=== PATIENT | male | born 1950 | race Hispanic/Latino ===

== ENCOUNTER 2023-01-09 11:12 | Outpatient (CLI) | payer OTHER, SELFPAY ==
[2023-01-09 11:59] LABS: Hematocrit 33.3 % (42.0-52.0); Hemoglobin 10.3 g/dL (14.0-18.0); Mean Corpuscular HGB Conc 30.9 g/dl (32-36); Mean Corpuscular Hemoglobin 27.5 pg (26-34); Mean Corpuscular Volume 88.8 fl (80-100); Mean Platelet Volume 11.6 fl (7.4-10.4); Platelet Count Result 236 k/mm3 (150-375); Red Blood Count 3.75 M/mm3 (4.6-6.20); Red Cell Distribution Width 14.5 % (11.5-14.5)
[2023-01-09 12:08] LABS: Albumin Level 4.4 g/dL (3.5-5.1); Anion Gap 9 mmol/L (8-16); Blood Urea Nitrogen 66 mg/dL (9-20); Calcium 9.7 mg/dL (8.4-10.2); Carbon Dioxide 27 mmol/L (22-30); Chloride 106 mmol/L (98-107); Cholesterol 138 mg/dL (0-200); Estimated Glomerular Filt Rate 17; Glucose 97 mg/dL (65-110); Sodium 142 mmol/L (137-145)
[2023-01-09 12:22] LABS: Creatinine Urine 82.1 mg/dL; Total Protein Urine Random 151 mg/dL; Ur Ttl Prot Creatinine Ratio 1.84 mg/mg (0-0.20)
[2023-01-09 12:25] LABS: Parathyroid Intact 80.7 pg/mL (7.5-53.5)
== END 2023-01-09 11:13 | disposition home or self-care (01) ==
LOC: ANHLAB 11:15
PROVIDERS: Visit Provider Internal Medicine Nephrology
DX: I10 Essential (primary) hypertension (principal); N18.4 Chronic kidney disease, stage 4 (severe)
CPT/HCPCS: 36415; 80069; 82088; 82465; 82570; 83970; 84156; 84244; 84443; 85027

== ENCOUNTER 2023-07-30 09:34 | Outpatient (CLI) | payer MEDICARE, SELFPAY ==
[2023-07-30 10:24] LABS: Hematocrit 28.6 % (42.0-52.0); Hemoglobin 8.6 g/dL (14.0-18.0); Mean Corpuscular HGB Conc 30.1 g/dl (32-36); Mean Corpuscular Hemoglobin 27.7 pg (26-34); Mean Platelet Volume 11.8 fl (7.4-10.4); Platelet Count Result 150 k/mm3 (150-375); Red Blood Count 3.11 M/mm3 (4.6-6.20); Red Cell Distribution Width 15.5 % (11.5-14.5); White Blood Count 6.4 K/mm3 (4.5-10.0)
[2023-07-30 10:38] LABS: Albumin Level 4.1 g/dL (3.5-5.1); Anion Gap 8 mmol/L (8-16); Blood Urea Nitrogen 103 mg/dL (9-20); Calcium 8.9 mg/dL (8.4-10.2); Carbon Dioxide 22 mmol/L (22-30); Chloride 111 mmol/L (98-107); Estimated Glomerular Filt Rate 11; Glucose 72 mg/dL (65-110); Phosphorus 6.1 mg/dL (2.5-4.5); Potassium 5.1 mmol/L (3.4-5.0); Sodium 141 mmol/L (137-145)
[2023-07-30 10:39] LABS: Creatinine Urine 85.1 mg/dL; Total Protein Urine Random 17 mg/dL
[2023-07-30 10:50] LABS: Parathyroid Intact 135.2 pg/mL (7.5-53.5)
[2023-07-30 11:00] LABS: Iron 56 ug/dL (49-181)
[2023-07-30 11:12] LABS: Percent Iron Saturation 21 % (20-50)
== END 2023-07-30 09:35 | disposition home or self-care (01) ==
LOC: ANHLAB 09:40
PROVIDERS: Visit Provider Internal Medicine Nephrology
DX: E21.1 Secondary hyperparathyroidism, not elsewhere classified (principal); N18.4 Chronic kidney disease, stage 4 (severe)
CPT/HCPCS: 36415; 80069; 82306; 82570; 82728; 83540; 83550; 83970; 84156; 85027

== ENCOUNTER 2023-08-28 10:01 | Outpatient (CLI) | payer MEDICARE, SELFPAY ==
[2023-08-28 11:43] LABS: Albumin Level 4.1 g/dL (3.5-5.1); Anion Gap 8 mmol/L (4-12); Blood Urea Nitrogen 77 mg/dL (9-20); Calcium 9.4 mg/dL (8.4-10.2); Carbon Dioxide 19 mmol/L (22-30); Chloride 114 mmol/L (98-107); Estimated Glomerular Filt Rate 15; Glucose 90 mg/dL (65-110); Potassium 5.5 mmol/L (3.4-5.0); Sodium 141 mmol/L (137-145)
== END 2023-08-28 10:02 | disposition home or self-care (01) ==
LOC: ANHLAB 10:05
PROVIDERS: Visit Provider Internal Medicine Nephrology
DX: N18.4 Chronic kidney disease, stage 4 (severe) (principal)
CPT/HCPCS: 36415; 80069

== ENCOUNTER 2023-10-06 09:34 | Outpatient (CLI) | payer MEDICARE, SELFPAY ==
[2023-10-06 10:34] LABS: Creatinine Urine 67.8 mg/dL; Total Protein Urine Random 30 mg/dL; Ur Ttl Prot Creatinine Ratio 0.44 mg/mg (0-0.20)
[2023-10-06 10:34] LABS: Hematocrit 29.9 % (42.0-52.0); Hemoglobin 9.1 g/dL (14.0-18.0); Mean Corpuscular HGB Conc 30.4 g/dl (32-36); Mean Corpuscular Hemoglobin 27.6 pg (26-34); Mean Corpuscular Volume 90.6 fl (80-100); Mean Platelet Volume 12.1 fl (7.4-10.4); Platelet Count Result 170 k/mm3 (150-375); Red Cell Distribution Width 13.8 % (11.5-14.5); White Blood Count 5.7 K/mm3 (4.5-10.0)
[2023-10-06 10:35] LABS: Albumin Level 4.7 g/dL (3.5-5.1); Anion Gap 13 mmol/L (4-12); Blood Urea Nitrogen 109 mg/dL (9-20); Calcium 9.5 mg/dL (8.4-10.2); Carbon Dioxide 23 mmol/L (22-30); Chloride 106 mmol/L (98-107); Estimated Glomerular Filt Rate 13; Glucose 89 mg/dL (65-110); Phosphorus 6.4 mg/dL (2.5-4.5); Potassium 4.3 mmol/L (3.4-5.0); Sodium 142 mmol/L (137-145)
[2023-10-06 10:45] LABS: Parathyroid Intact 111.4 pg/mL (7.5-53.5)
== END 2023-10-06 09:35 | disposition home or self-care (01) ==
PROVIDERS: Visit Provider Internal Medicine Nephrology
DX: I12.9 Hypertensive chronic kidney disease with stage 1 through stage 4 chronic kidney disease, or unspecified chronic kidney disease (principal); N18.4 Chronic kidney disease, stage 4 (severe)
CPT/HCPCS: 36415; 80069; 82570; 83970; 84156; 85027

== ENCOUNTER 2023-12-15 12:35 | Outpatient (CLI) | payer MEDICARE, SELFPAY ==
[2023-12-15 12:51] LABS: Hematocrit 28.6 % (42.0-52.0); Hemoglobin 9.1 g/dL (14.0-18.0); Mean Corpuscular HGB Conc 31.8 g/dl (32-36); Mean Corpuscular Hemoglobin 28.3 pg (26-34); Mean Corpuscular Volume 89.1 fl (80-100); Mean Platelet Volume 10.3 fl (7.4-10.4); Platelet Count Result 231 k/mm3 (150-375); Red Blood Count 3.21 M/mm3 (4.6-6.20); Red Cell Distribution Width 13.9 % (11.5-14.5); White Blood Count 5.9 K/mm3 (4.5-10.0)
[2023-12-15 13:02] LABS: Albumin Level 4.5 g/dL (3.5-5.1); Anion Gap 14 mmol/L (4-12); Blood Urea Nitrogen 88 mg/dL (9-20); Calcium 9.3 mg/dL (8.4-10.2); Carbon Dioxide 26 mmol/L (22-30); Chloride 101 mmol/L (98-107); Estimated Glomerular Filt Rate 12; Glucose 132 mg/dL (65-110); Phosphorus 5.4 mg/dL (2.5-4.5); Potassium 4.2 mmol/L (3.4-5.0); Sodium 141 mmol/L (137-145)
== END 2023-12-15 12:36 | disposition home or self-care (01) ==
LOC: ANHLAB 12:37
PROVIDERS: PCP Family Medicine; Visit Provider Internal Medicine Nephrology
DX: I12.9 Hypertensive chronic kidney disease with stage 1 through stage 4 chronic kidney disease, or unspecified chronic kidney disease (principal); N18.9 Chronic kidney disease, unspecified
CPT/HCPCS: 36415; 80069; 85027

== ENCOUNTER 2024-03-08 12:21 | Outpatient (CLI) | payer MEDICARE, SELFPAY ==
[2024-03-08 12:54] LABS: Hematocrit 30.2 % (42.0-52.0); Hemoglobin 9.5 g/dL (14.0-18.0); Mean Corpuscular HGB Conc 31.5 g/dl (32-36); Mean Corpuscular Hemoglobin 27.8 pg (26-34); Mean Corpuscular Volume 88.3 fl (80-100); Mean Platelet Volume 11.2 fl (7.4-10.4); Platelet Count Result 170 k/mm3 (150-375); Red Blood Count 3.42 M/mm3 (4.6-6.20); Red Cell Distribution Width 14.4 % (11.5-14.5); White Blood Count 6.5 K/mm3 (4.5-10.0)
[2024-03-08 13:05] LABS: Albumin Level 4.3 g/dL (3.5-5.1); Anion Gap 10 mmol/L (4-12); Blood Urea Nitrogen 63 mg/dL (9-20); Calcium 9.1 mg/dL (8.4-10.2); Carbon Dioxide 26 mmol/L (22-30); Chloride 106 mmol/L (98-107); Estimated Glomerular Filt Rate 11; Glucose 77 mg/dL (65-110); Phosphorus 5.5 mg/dL (2.5-4.5); Potassium 4.9 mmol/L (3.4-5.0); Sodium 142 mmol/L (137-145)
[2024-03-08 13:13] LABS: Parathyroid Intact 93.8 pg/mL (14.5-75.2)
[2024-03-08 13:17] LABS: Creatinine Urine 78.5 mg/dL; Total Protein Urine Random 82 mg/dL; Ur Ttl Prot Creatinine Ratio 1.04 mg/mg (0-0.20)
[2024-03-08 13:48] LABS: Vitamin D 25 Hydroxy 65.2 ng/mL
== END 2024-03-08 12:22 | disposition home or self-care (01) ==
PROVIDERS: PCP Family Medicine; Visit Provider Internal Medicine Nephrology
DX: E21.1 Secondary hyperparathyroidism, not elsewhere classified (principal); N18.4 Chronic kidney disease, stage 4 (severe)
CPT/HCPCS: 36415; 80069; 82306; 82570; 83970; 84156; 85027

== ENCOUNTER 2024-06-14 09:02 | Outpatient (CLI) | payer MEDICARE, SELFPAY ==
[2024-06-14 09:27] LABS: Hematocrit 29.1 % (42.0-52.0); Mean Corpuscular HGB Conc 30.9 g/dl (32-36); Mean Corpuscular Hemoglobin 27.4 pg (26-34); Mean Corpuscular Volume 88.7 fl (80-100); Mean Platelet Volume 10.9 fl (7.4-10.4); Platelet Count Result 174 k/mm3 (150-375); Red Blood Count 3.28 M/mm3 (4.6-6.20); Red Cell Distribution Width 14.6 % (11.5-14.5); White Blood Count 5.9 K/mm3 (4.5-10.0)
[2024-06-14 09:42] LABS: Albumin Level 4.1 g/dL (3.5-5.1); Anion Gap 11 mmol/L (4-12); Blood Urea Nitrogen 79 mg/dL (9-20); Calcium 9.5 mg/dL (8.4-10.2); Carbon Dioxide 32 mmol/L (22-30); Chloride 98 mmol/L (98-107); Estimated Glomerular Filt Rate 12; Glucose 81 mg/dL (65-110); Phosphorus 5.7 mg/dL (2.5-4.5); Sodium 141 mmol/L (137-145)
[2024-06-14 10:04] LABS: Parathyroid Intact 49.1 pg/mL (14.5-75.2)
[2024-06-14 10:33] LABS: Creatinine Urine 42.6 mg/dL; Total Protein Urine Random 46 mg/dL; Ur Ttl Prot Creatinine Ratio 1.08 mg/mg (0-0.20)
== END 2024-06-14 09:03 | disposition home or self-care (01) ==
PROVIDERS: PCP Family Medicine; Visit Provider Internal Medicine Nephrology
DX: E21.1 Secondary hyperparathyroidism, not elsewhere classified (principal); I12.9 Hypertensive chronic kidney disease with stage 1 through stage 4 chronic kidney disease, or unspecified chronic kidney disease; N18.4 Chronic kidney disease, stage 4 (severe)
CPT/HCPCS: 36415; 80069; 82570; 83970; 84156; 85027

== ENCOUNTER 2024-06-15 11:52 | Outpatient (CLI) | payer MEDICARE, SELFPAY | END 2024-06-15 11:53 | disposition home or self-care (01) | PROVIDERS: PCP Family Medicine; Visit Provider Internal Medicine Nephrology | DX: N18.4 Chronic kidney disease, stage 4 (severe) (principal) | CPT/HCPCS: 83735 ==

== ENCOUNTER 2024-08-13 09:24 | Outpatient (CLI) | payer MEDICARE, SELFPAY ==
[2024-08-13 09:41] LABS: Hematocrit 32.2 % (42.0-52.0); Hemoglobin 9.8 g/dL (14.0-18.0); Mean Corpuscular HGB Conc 30.4 g/dl (32-36); Mean Corpuscular Hemoglobin 27.1 pg (26-34); Mean Corpuscular Volume 89.2 fl (80-100); Mean Platelet Volume 11.5 fl (7.4-10.4); Platelet Count Result 190 k/mm3 (150-375); Red Blood Count 3.61 M/mm3 (4.6-6.20); Red Cell Distribution Width 14.1 % (11.5-14.5); White Blood Count 7.3 K/mm3 (4.5-10.0)
--- OUTSIDE RECORDS SUMMARY | 2024-08-13 09:58 | XMS_ITS | Clinical Summary ---
Author Organization [facility] Address [address] [place] [address] Care Team Providers Care Communications Department Chairperson Name Role Phone Charla Jones MD Unavailable [phone] Allergies No known active allergies Medications calcitriol (ROCALTROL) 0.25 MCG capsuleIndications :CKD (chronic kidney disease) stage 4, GFR 15-29 ml/min (CMS/HCC HHS/HCC) Take 1 capsule (0.25 mcg total) by mouth daily. 90 capsule 1 05/07/20 22 Active ferrous sulfate EC 325 (65 Fe) MG tabletIndications: Anemia due to stage 4 chronic kidney disease (CMS/HCC HHS/HCC) Take 1 tablet (325 mg total) by mouth daily. 90 tablet 1 05/07/20 22 Active folic acid (FOLVITE) 400 MCG tabletIndications: Anemia due to stage 4 chronic kidney disease (CMS/HCC HHS/HCC) Take 1 tablet (400 mcg total) by mouth daily. 90 tablet 1 05/07/20 22 Active SHOE WEAR, DME,Indications:Ty pe 2 diabetes mellitus with foot ulcer, without long-term current use of insulin (CMS/HCC HHS/HCC) Off-loading shoe for the left foot 1 Device 05/20/20 22 Active Additional Information Patient not taking.Reported on 09/08/2023 atorvastatin (LIPITOR) 80 MG tablet Take 1 tablet (80 mg total) by mouth daily. 09/24/19 22 Active Cholecalciferol (VITAMIN D) 50 MCG (1999 UT) CapIndications:Vit [place] D insufficiency Take 1 tablet by mouth daily. 30 capsule 07/26/19 23 Active gentamicin (GARAMYCIN) 0.1 % cream Apply topically 3 (three) times daily. 30 g 1 08/17/19 23 Active furosemide (LASIX) 40 MG tabletIndications: CKD (chronic kidney disease) stage 4, GFR 15-29 ml/min ([facility] HHS/HCC) Take 1 tablet by mouth twice a day for 7 days, then decrease back to once a day 90 tablet 3 07/09/19 24 Active COMPRESSION STOCKINGSIndicatio ns:Bilateral lower extremity edema Wear daily bilaterally to reduce swelling in legs 1 Container 1 07/09/19 24 Active lisinopril (PRINIVIL) 10 MG tablet Take 1 tablet (10 mg total) by mouth daily. 07/24/19 24 Active allopurinol (ZYLOPRIM) 100 MG tablet Take 1 tablet (100 mg total) by mouth daily. 02/06/20 23 Active amLODIPine (NORVASC) 5 MG tabletIndications: Primary hypertension Take 1 tablet by mouth once daily 90 tablet 09/19/19 24 Active hydrALAZINE (APRESOLINE) 50 MG tabletIndications: Benign hypertension with CKD (chronic kidney disease) stage IV ([facility]/HCC HHS/HCC) Take 1 tablet (50 mg total) by mouth 3 (three) times daily. 270 tablet 10/28/19 24 Active gabapentin (NEURONTIN) 100 MG capsuleIndications :Diabetic polyneuropathy associated with type 2 diabetes mellitus ([facility] HHS/HCC) Take 1 capsule (100 mg total) by mouth 3 (three) times daily. 270 capsule 3 12/01/19 24 025 Active glipiZIDE (GLUCOTROL) 5 MG tabletIndications: Type 2 diabetes mellitus with stage 4 chronic kidney disease, without long-term current use of insulin ([facility] HHS/HCC),Diabetic ulcer of left midfoot associated with type 2 diabetes mellitus, limited to breakdown of skin ([facility] HHS/HCC) Take 1 tablet (5 mg total) by mouth daily. 90 tablet 3 12/17/19 24 025 Active chlorthalidone (HYGROTEN) 25 MG tabletIndications: Benign hypertension with CKD (chronic kidney disease) stage IV (CMS/HCC HHS/HCC) Take 2 tablets (50 mg total) by mouth daily. 180 tablet 1 01/05/20 24 Active famotidine (PEPCID) 20 MG tabletIndications: Gastroesophageal reflux disease without esophagitis Take 1 tablet (20 mg total) by mouth 2 (two) times daily as needed for Heartburn. 60 tablet 2 02/05/20 24 Active Active Problems Problem Noted Date Diagnosed Date Tinnitus of both ears 10/13/2023 Atherosclerosis of [place] of both lower extremities with intermittent claudication 04/03/2023 Overview (09/08/2023): Last Assessment & Plan: Impression: Patient complains of chronic numbness to bilateral lower extremities and pins and needles sensation to bilateral feet. He has stable nondisabling claudication to bilateral lower extremities. Monophasic waveforms noted to tibial levels bilaterally seen on recent duplex. Plan: Continue ongoing risk factor modifications. - follow up in 6 months for re-evaluation with repeat lower extremity arterial doppler. Diabetic polyneuropathy asso ciated with type 2 diabetes mellitus ([facility]) 01/09/2023 Secondary hyperparathyroidism ([facility]) 10/15/19 23 Peripheral vascular disease 08/07/2022 Benign hypertension with CKD (chronic kidney disease) stage IV ([facility]) 02/05/2022 Diabetic ulcer of left midfo ot associated with type 2 diabetes mellitus, limited to breakdown of skin ([facility]) 02/05/2022 Overview (09/08/2023): Last Assessment & Plan: Stressed the importance of the antibiotics and getting in with a foot doctor. Also discussed need to get labs and xrays today. He has issue with non-compliance in the past. He expressed understanding Last Assessment & Plan: Impression: Patient has an ulceration noted to the lateral aspect of the left 5th metatarsal that continues to improve. Podiatry is monitoring and providing wound care. Diabetes mellitus chronic with good glucose control. Plan: Continue recommendations as per podiatry. -continue insulin and glipizide - Recommend patient to make a sooner appointment if ulceration worsens. Patient voices understanding. Hyperkalemia 03/29/2021 Overview (05/07/2022): Last Assessment & Plan: Rechecking BMP Will restart lasix daily, at 40 mg Pure hypercholesterolemia 03/29/2021 Overview (09/08/2023): Last Assessment & Plan: Hypercholesterolemia chronic and controlled. Continue Lipitor. Lower leg edema 02/20/2021 Overview (05/07/2022): Last Assessment & Plan: Suspect decreased kidney fucntion vs HF vs thyroid disease Checking labs Will likely start lasix for lower leg edema Controlled type 2 diabetes m mariana with hyperglycemia, without long-term current use of insulin ([facility]) 02/20/2021 Overview (05/07/2022): Last Assessment & Plan: Stop metformin Start glipizide instead Referral to renal for further management of his renal function Resolved Problems Problem Noted Date Diagnosed Date Resolved Date Primary hypertension 03/29/2021 024 Overview (09/08/2023): Last Assessment & Plan: Continue medications as currently precribed Last Assessment & Plan: Impression: Chronic and stable. Plan: Continue amlodipine, carvedilol, hydralazine Preventative health care 02/20/202105/2022 Immunizations Name Administration Dates Next Due Fluzone High Dose - >Age 65 (Prefilled Syringe) 05/07/2022,03/29/2021 Influenza Adult (Generic) 05/07/2022 PFIZER COVID-19 (CORTEZ CAP), MRNA, LNP-S, PF, 30 MCG/0.3 ML YOBANI-SUCROSE, IM 09/26/2021 PFIZER COVID-19 (ORIGINAL FO RMULATION, PURPLE CAP) mRNA, LNP-S, PF, 30 MCG/0.3 ML DOSE 04/03/2021,08/14/2020,07/23/2020 Pneumococcal (Prevnar 20) 10/14/2022 Tdap (Adacel) 10/14/2022 Family History Relation Status Comments Father Mother Social History Tobacco Use Types Packs/Day Years Used Date Smoking Tobacco: Never Passive Smoke Exposure: Past Smokeless Tobacco: Never Tobacco Cessation:Counseling Given: Not Answered Alcohol Use Standard Drinks/Week Comments Not Currently 0 (1 standard drink = 0.6 oz pur e alcohol) PHQ-2 Answer Date Recorded Patient Health Questionnaire-2 Score 0 10/13/2023 Sex and Gender Information Value Date Recorded Sex Assigned at Not on file Legal Sex Male 10:31 AM SURFACE GRINDER Gender Identity Not on file Sexual Orientation Not on file Last Filed Vital Signs Vital Sign Reading Time Taken Comments Blood Pressure 171/78 10/13/2023 9:34 AM CDT Pulse 69 10/13/2023 9:34 AM CDT Temperature 36.6 C (97.8 F) 10/13/2023 9:03 AM CDT Respiratory Rate 16 07/09/2023 10:47 AM SURFACE GRINDER Oxygen Saturation 99% 10/13/2023 9:03 AM CDT Inhaled Oxygen Concentration - - Weight 68.3 kg (150 lb 8 oz) 10/13/2023 9:03 AM CDT Height 170.2 cm (5' 7 ) 10/13/2023 9:03 AM CDT Body Mass Index 23.57 10/13/2023 9:03 AM CDT Plan of Treatment Health Maintenance Due Date Last Done Comments ASCVD Statin 1950 Colorectal Cancer Screening Colonoscopy (10 Years) 1950 Zoster Vaccines (1 of 2) 1999 ASCVD LDL 05/07/2023 05/07/2022 Lipid Panel 05/07/2023 05/07/2022, 02/20/2021 RSV Immunization or 60+ Years (1 - 1-dose 75+ series) 01/17/2024 COVID-19 Vaccine ( season) 2024 05/16/2023, 03/11/2022, 09/26/2021, Additional history exists Hemoglobin A1C 02/29/2024 08/29/2023, 0806/2022, 10/14/2022, Additional history exists Influenza Adult (#1) 2024 05/07/2022, 05/07/2022, 03/29/2021 PHQ-2 (Physician [place]) 06/02/2024 10/13/2023 Kidney Health Evaluation 08/28/2024 08/29/2023 PHQ-2 (Physician [place]) 10/12/2024 10/13/2023 Diabetes: Retinopathy Eye Exam 02/06/2025 02/06/2023 Annual Medicare Wellness Visit 03/17/2025 Postponed from 2014 (Patient Refused) DTaP, Tdap and Td Vaccines (2 - Td or Tdap) 10/14/2032 10/14/2022 Hepatitis C Completed 05/07/2022 Pneumococcal Vaccine: 65+ Years Completed 10/14/2022 Meningococcal B Vaccine Aged Out No l onger eligible based on patient's age to complete this topic Meningococcal Vaccine Aged Out No gilberto tono eligible based on patient's age to complete this topic RSV Immunizations Under 20 Months Aged Out No longer eligible based on patient's age to complete this topic Procedures Procedure Name Priority Date/Time Associated Diagnosis Comments HEMOGLOBIN, GLYCOSYLATED Routine 08/29/2023 11:07 AM CDT Uncontrolled type 2 diabetes mellitus with hyperglycemia DIABETIC RETINOPATHY EXAM (NEGATIVE)(SCAN ORDER) Routine 02/06/2023 HEPATITIS C ANTIBODY Routine 05/07/2022 12:58 PM SURFACE GRINDER Annual physical exam LIPID PANEL Routine 05/07/2022 12:58 PM SURFACE GRINDER Mixed hyperlipidemia from Last 3 Months or Most Recently Relevant to Health Maintenance Results * (ABNORMAL) HEMOGLOBIN, GLYCOSYLATED (08/29/2023 11:07 AM CDT) HGB A1C 6.7(H) <5.7 % 08/29/2023 12:11 PM CDT [facility] Comment: ADA GUIDELINES 2010 5.7 TO 6.4% INCREASED RISK OF DIABETES > OR = 6.5% CONSISTENT WITH DIABETES ESTIMATED AVG GLUCOSE 146 mg/dL 08/29/2023 12:11 PM CDT [facility] 08/29/2023 11:0 7 AM CDT Shalom Adame DO LABORATORY Final Resul t [facility] [address] [place] [address], [place] [phone] * DIABETIC RETINOPATHY EXAM (NEGATIVE)(SCAN) (02/06/2023) [facility] Scanned SCANNING Final Resu lt Performing Organization Address City/[facility]/ZIP Co de Phone Number [facility] * (ABNORMAL) LIPID PANEL (05/07/2022 12:58 PM SURFACE GRINDER) CHOLESTEROL 205(H) <200 MG/DL 05/07/2022 9:41 PM SURFACE GRINDER [facility] TRIGLYCERIDES 127 <150 MG/DL 05/07/2022 9:41 PM SURFACE GRINDER [facility] HDL 51 >40 MG/DL 05/07/2022 9:41 PM SURFACE GRINDER [facility] LDL-C 129(H) <100 MG/DL 05/07/2022 9:41 PM SURFACE GRINDER [facility] VLDL CALCULATION 25 5 - 28 MG/DL 05/07/2022 9:41 PM SURFACE GRINDER [facility] CHOL/HDL RATIO 4.0 0.0 - 4.0 05/07/2022 9:41 PM SURFACE GRINDER [facility] LDL/HDL 2.5(H) 0.41 - 2.13 05/07/2022 9:41 PM SURFACE GRINDER [facility] NON HDL CHOLESTEROL 154(H) <140 MG/DL 05/07/2022 9:41 PM SURFACE GRINDER [facility] 05/07/2022 12:5 8 PM SURFACE GRINDER Brittney Pate MD LABORATORY Final Result Performing Organization Address City/[facility]/ZIP Co de Phone Number [facility] [address] [place] [address], * HEPATITIS C ANTIBODY (05/07/2022 12:58 PM SURFACE GRINDER) HEPATITIS C AB NON-REACTI VE NON-REACT MIRNA 05/08/2022 6:56 PM SURFACE GRINDER [facility] Comment: ANTIBODIES TO HCV NOT DETECTED. DOES NOT EXCLUDE THE POSSIBILITY OF EXPOSURE TO HCV. 05/07/2022 12:5 8 PM SURFACE GRINDER Brittney Pate MD LABORATORY Final Result [facility] [address] [place] [address], [place] [phone] [id number] from Last 3 Months or Most Recently Relevant to Health Maintenance Insurance [facility] Care Teams Communications Department Chairperson Relationship Specialty Start Date End Date Charla Jones MD [address] [facility], [address] [address] Consulting Physician NEPHROLOGY 05/13/22
--- OUTSIDE RECORDS SUMMARY | 2024-08-13 09:58 | XMS_ITS ---
Author Organization [facility] Address [address] [place], [place] [id number] Care Team Providers Care Heel Cementer Machine Name Role Phone BRIDGETTE CRUZ Unavailable [phone] Shalom Adame Unavailable Unavailable REASON FOR VISIT toe pain, callus care Encounters Encounter Location Date Provider Diagnosis [facility] [address] [place], [place] [id number] 07/26/2024 BRIDGETTE CRUZ Non-pressure chronic ulcer of other part of left foot limited to breakdown of skin L97.521 ; Ingrowing nail L60.0 ; Atherosclerosis of habematolel arteries of extremities with intermittent claudication, bilateral legs I70.213 and Left foot pain M79.672 Assessments Encounter Date Diagnosis (ICD Code) Assessment Notes Treatment Notes Treatment Clinical Notes Section Notes 07/26/2024 Non-pressure chronic ulcer of other part of left foot limited to breakdown of skin (ICD-10 - L97.521) 07/26/2024 Ingrowing nail (ICD-10 - L60.0) 07/26/2024 Atherosclerosis of habematolel arteries of extremities with intermittent claudication, bilateral legs (ICD-10 - I70.213) 07/26/2024 Left foot pain (ICD-10 - M79.672) 07/26/2024 Other All corns or calluses, as described in the note above, were cut and pared utilizing a #15 blade Plan Of Treatment Treatment Notes Assessment Notes Other All corns or calluse s, as described in the note above, were cut and pared utilizing a #15 blade Next Appt Details Follow Up: 2 Weeks, Reason: Provider Name:BRIDGETTE ERWIN, 10/04/2024 10:10:00 AM, [address], [place], [phone], Progress Notes * DAVID KELLYDOB:1950 ( 74 yo M)Acc No.[id number]:07/26/2024 Patient: DAVID DIOR Provider: Zach Cruz DPM :1950 A ge:74 Y S ex:Male Date:07/26/2024 Address:[address] [place] [address] Subjective: * Chief Complaints: * T oe pain, callus care * HPI: H PI: New Complaint E stablished patient presents with a new complaint. Patient complains of an issue to the ball of his left foot. Patient states he has two calluses on the medial and lateral side of her foot. He states the calluses have started hurting. He states he had sores in those spots he was treated for last year, but they have healed up. P atient denies any injury. MA: sea. * ROS: G eneral / Constitutional: Patient denies c hange in appetite, fatigue, chills, fever.? C ardiovascular: Chest pain d enies. N eurologic: Loss of use of extremity d enies. * Medical History: * Surgical History: * Hospitalization/Major Diagno stic Procedure: * Medications: Objective: * Vitals: * Examination: P hysical Examination: Gen: T he patient is awake, alert, well developed, well groomed and well nourished. They are in no apparent distress. . Musc: F oot structure is normal bilateral. Muscle strength is 5/5 to all joints bilaterally. There is no pain on palpation. . Derm: T here is absent hair growth on bilateral feet. There are pigmentary changes of bilateral foot. The skin color is red. The skin texture is thin and shiny. Distal cooling noted in bilateral feet. Nails are thick, discolored, and dystrophic with subungual debris. They are painful to palpation. Hyperkeratotic lesions noted: 1st and 5th MTH left. Neuro: G rossly intact to light touch bilateral . Vasc: P osterior tibialis pulse 0/4 bilaterally. Dorsalis pedis pulse 0/4 bilaterally. No edema noted. Capillary fill time > 3 seconds to all digits. . Assessment: * Assessment: 1. N on-pressure chronic ulcer of other part of left foot limited to breakdown of skin - L97.521 (Primary) 2 . I ngrowing nail - L60.0 3 . A therosclerosis of habematolel arteries of extremities with intermittent claudication, bilateral legs - I70.213 & #160; 4 . L eft foot pain - M79.672 Plan: * Treatment: * Procedure Codes: * Follow Up: 2 Weeks * Billing Information: * Visit Code: 65813 Office Visit, Est Pt., Level 3. * Procedure Codes: * NICAL MANAGER CHEMICAL PLANT Sign off status: Completed true * Provider: Zach Cruz DPM Date: 0 07/26/2024 Generated for Naomi jose/Natalia/Jackelinesmitting on: 0 08/13/2024 09:58 AM CDT History and Physical Notes * HPI (History of Present Illness) Category Sub-Category Detail Notes Category Not es HPI New Complaint Established paula ent presents with a new complaint. Patient complains of an issue to the ball of his left foot. Patient states he has two calluses on the medial and lateral side of her foot. He states the calluses have started hurting. He states he had sores in those spots he was treated for last year, but they have healed up. Patient denies any injury. MA: sea Examination Category Sub-Category Detail Notes Category Not es Physical Examination Gen: The patient is awake, alert, well developed, well groomed and well nourished. They are in no apparent distress. Vasc: Posterior tibialis p ulse 0/4 bilaterally. Dorsalis pedis pulse 0/4 bilaterally. No edema noted. Capillary fill time > 3 seconds to all digits. Neuro: Grossly intact to li ght touch bilateral Musc: Foot structure is no rmal bilateral. Muscle strength is 5/5 to all joints bilaterally. There is no pain on palpation. Derm: There is absent hair growth on bilateral feet. There are pigmentary changes of bilateral foot. The skin color is red. The skin texture is thin and shiny. Distal cooling noted in bilateral feet. Nails are thick, discolored, and dystrophic with subungual debris. They are painful to palpation. Hyperkeratotic lesions noted: 1st and 5th MTH left
--- OUTSIDE RECORDS SUMMARY | 2024-08-13 09:58 | XMS_ITS ---
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 skin L97.521 ; Ingrowing nail L60.0 ; Atherosclerosis of [place] arteries of extremities with intermittent claudication, bilateral legs I70.213 and Left foot pain M79.672 Assessments Encounter Date Diagnosis (ICD Code) Assessment Notes Treatment Notes Treatment Clinical Notes Section Notes 11/04/2023 Non-pressure chronic ulcer of other part of left foot limited to breakdown of skin (ICD-10 - L97.521) 11/04/2023 Ingrowing nail (ICD-10 - L60.0) 11/04/2023 Atherosclerosis of [place] arteries of extremities with intermittent claudication, bilateral legs (ICD-10 - I70.213) 11/04/2023 Left foot pain (ICD-10 - M79.672) 11/04/2023 Other The ulcer was debrided. Pt advised to resume wound care and call if they get worse. Plan Of Treatment Treatment Notes Assessment Notes Other The ulcer was debrid ed. Pt advised to resume wound care and call if they get worse. Next Appt Details Follow Up: 2 Weeks, Reason: Provider Name:BRIDGETTE ERWIN, 10/04/2024 10:10:00 AM, [address], [place], [place], [phone], Progress Notes * DAVID KELLYDOB:1950 ( 73 yo M)Acc No.[id number]:11/04/2023 Patient: DAVID DIOR Provider: Zach Cruz DPM :1950 A ge:73 Y S ex:Male Date:11/04/2023 Address:[address] [place], [place] [id number] Subjective: * Chief Complaints: * 1 . ULCER CHECK. * HPI: H PI: Follow Up Visit P atient presents for follow up visit for a wound on the lateral side of his left foot. Patient states his foot is sore this morning, but improving. MA: sea. * ROS: G eneral / Constitutional: Patient denies c hange in appetite, fatigue, chills, fever.? C ardiovascular: Chest pain d enies. N eurologic: Loss of use of extremity d enies. * Medical History: A GERRY REFLUX, HEPATITIS, LEG,FEET CRAMPS, OPEN SORES, DIABETIC TYPE 2. Objective: * Examination: P hysical Examination: Gen: T [...] subungual debris. They are painful to palpation. Ulceration noted sub 1st MTH left has healed. Ulceration noted lateral 5th MTH left - it4x1 mm No SOI. Neuro: G rossly intact to light touch [...] - L60.0 3 . A therosclerosis of [place] arteries of extremities with intermittent claudication, bilateral legs - I70.213 4 . L eft foot pain - M79.672 Plan: * Treatment: * Follow Up: 2 Weeks * Billing Information: * Visit Code: 22028 Office Visit, Est Pt., Level 3. * Procedure Codes: * Sign off status: Completed true * Provider: Zach Cruz, THEO Date: 0 11/04/2023 Generated for Printi ng/Fakasandrag/eTransmitting on: 0 08/13/2024 09:58 AM CDT History and Physical Notes * HPI (History of Present Illness) Category Sub-Category Detail Notes Category Not es HPI Follow Up Visit Patient presents for follow up visit for a wound on the lateral side of his left foot. Patient states his foot is sore this morning, but improving. MA: sea Examination Category Sub-Category Detail Notes [...] subungual debris. They are painful to palpation. Ulceration noted sub 1st MTH left has healed. Ulceration noted lateral 5th MTH left - it4x1 mm No SOI
--- OUTSIDE RECORDS SUMMARY | 2024-08-13 09:58 | XMS_ITS | Encounter Summary ---
Author Organization [facility] Address [facility] [place] [address] Care Team Providers Care Artificial Pearl Maker Name Role Phone Brittney Pate MD Primary Care Provider [phone] Charla Jones MD Unavailable [phone] Shalom Adame DO Primary Care Provider [phone] Shalom Adame DO Primary Care Provider [phone] Encounter Details Date Type Department Care Team (Late st Contact Info) Description 08/05/2022 Prep for Procedure [facility], [facility] [address] [place], [place] [id number] Buzz Sesay MD [facility]. [facility] [address], [place] [id number] Social History Tobacco Use Types Packs/Day Years Used Date Smoking Tobacco: Never Smokeless Tobacco: Never Alcohol Use Standard Drinks/Week Comments Yes 0 (1 standard drink = 0.6 oz pur e alcohol) PHQ-2 Answer Date Recorded Patient Health Questionnaire-2 Score 0 07/26/2022 Sex and Gender Information Value Date Recorded Sex Assigned at Not on file Legal Sex Male 10:31 AM TOOTH CLERK Gender Identity Not on file Sexual Orientation Not on file COVID-19 Exposure Response Date Recorded In the last 10 days, have yo u been in contact with someone who was confirmed or suspected to have Coronavirus/COVID-19? No / Unsure 07/31/2022 1:32 PM TOOTH CLERK documented as of this encounter Plan of Treatment Not on file documented as of this encounter Visit Diagnoses Not on filedocumented in this encounter Additional Health Concerns Assessment Noted Time PHQ-9 Depression Total Score: 0 05/16/20 1:10 PM TOOTH CLERK documented as of this encounter Care Teams Artificial Pearl Maker Relationship Specialty Start Date End Date Brittney Pate MD [address] [place] [address] PCP - General FAMILY PRACTICE 04/15/22 09/15/22 Shalom Adame DO [address] [place] [address] PCP - General FAMILY PRACTICE 09/25/22 10/23/22 Shalom Adame DO [address] [place] [address] PCP - General FAMILY PRACTICE 10/24/22 06/21/24 Charla Jones MD [address] [facility], [address] [address] Consulting Physician NEPHROLOGY 05/13/22 documented as of this encounter
--- OUTSIDE RECORDS SUMMARY | 2024-08-13 09:58 | XMS_ITS | Continuity of Care Document ---
Author Organization [facility] Address [address] [place] [address] Phone Care Team Providers Care Colored Leather Setter Name Role Phone Prem Delaney Unavailable Unavailable Advance Directives Directive Yes / No Effective Date File Name No Information Encounters Encounter Description Practice Location Reason(s) For Visit Diagnoses Date Provider Providers Copied on Encounter [facility], [address], [place], [place], [id number], [place] tel:[phone] [facility] No Information Prem Baltazar. [address] [place] [address], [id number], [place]. tel:[phone] Family History Family Member Type Diagnosis Age At Onset No Information Payers Payer name Insurance type Covered green party ID Authoriza tion(s) No Information Social History Type Description Quantity Date Captured Comments Sex Male Smoking Status No Information Chief Complaint And Reason For Visit No Information Reason For Referral Reason For Referral No Information History Of Present Illness Encounter Date Complaint History Of Prese nt Illness No Information Functional Status Date Functional Assessmen t No Information Instructions Date Instruction Additional Infor mation No Information Assessments Type Assessment Date No Information Patient Care Teams Name Effective Dates (start - stop) Status Members No Information
--- OUTSIDE RECORDS SUMMARY | 2024-08-13 09:59 | XMS_ITS | Referral Summary ---
Author Organization [facility] Address [address] [place] [address] Phone Care Team Providers Care Diabetes Trainer Name Role Phone Jay Queen MD Primary Care Provider [phone] Mando Velazco MD Unavailable [phone] Allergies No known active allergies Medications blood-glucose meter miscIndications:D iabetes 1 kit daily Test blood sugar daily 1 each 3 1 Active Additional Information Patient not taking.Reported on 04/28/2024 blood glucose diagnostic (glucose blood) stripIndications: Uncontrolled type 2 diabetes mellitus with hyperglycemia (HCC) Test blood sugar daily 100 strip 3 1 Active Additional Information Patient not taking.Reported on 04/28/2024 lancets miscIndications:U ncontrolled type 2 diabetes mellitus with hyperglycemia (HCC) Test blood sugars daily 100 each 3 1 Active Additional Information Patient not taking.Reported on 04/28/2024 glipiZIDE (GLUCOTROL) 5 mg tabletIndications :type 2 diabetes mellitus Take 1 tablet (5 mg total) by mouth daily 30 tablet 11 1 Active carvediloL (COREG) 12.5 mg tablet Take 1 tablet (12.5 mg total) by mouth 2 (two) times a day with meals 180 tablet 3 2 Active furosemide (LASIX) 40 mg tabletIndications :Lower leg edema,Stage 3a chronic kidney disease (HCC),Hyperkalemi a Take 1 tablet by mouth once daily 90 tablet 2 Active chlorthalidone 25 mg tablet Take 2 tablets (50 mg total) by mouth daily 180 tablet 3 2 Active calcitRIOL (ROCALTROL) 0.25 mcg capsule Take 1 capsule (0.25 mcg total) by mouth daily 90 capsule 3 2 Active Additional Information Patient not taking.Reported on 03/18/2024 famotidine (PEPCID) 20 mg tabletIndications :Gastroesophageal reflux disease without esophagitis TAKE 1 TABLET BY MOUTH TWICE DAILY NEEDED FOR INDIGESTION OR HEARTBURN 180 tablet 1 2 Active allopurinoL (ZYLOPRIM) 100 mg tablet Take 1 tablet (100 mg total) by mouth daily 3 Active amLODIPine (NORVASC) 5 mg tablet Take 1 tablet (5 mg total) by mouth daily Active atorvastatin (LIPITOR) 80 mg tablet Take 1 tablet (80 mg total) by mouth daily 2 Active cholecalciferol (VITAMIN D-3) 2000 unit capsule Take 1 capsule (2,000 Units total) by mouth daily 3 Active ferrous sulfate 325 mg (65 mg of elemental iron) tablet Take 1 tablet (325 mg total) by mouth daily 2 Active folic acid (FOLVITE) 400 mcg tablet Take 1 tablet (400 mcg total) by mouth daily 2 Active gentamicin (GARAMYCIN) 0.1 % cream Apply topically 3 (three) times a day 3 Active hydrALAZINE (APRESOLINE) 50 mg tablet Take 1 tablet (50 mg total) by mouth 3 (three) times a day Active gabapentin (NEURONTIN) 100 mg capsule Take 1 capsule (100 mg total) by mouth 3 (three) times a day 4 025 Active Active Problems Problem Noted Date Diagnosed Date Atherosclerosis of [place] of both lower extremities with intermittent claudication 04/03/2023 Assessment & Plan (04/28/2024 12:48 PM PLATER APPRENTICE): Impression: Patient is status post balloon angioplasty left popliteal and PT. he denies any symptoms of claudication, ischemic rest pain to his lower extremity. Audible signals are noted 2 distal pulses to bilateral lower extremities. No new open ulcerations are noted on exam. Plan: Continue ongoing risk factor modifications. -Recommend patient to follow-up in 6 months for re-evaluation with repeat lower extremity arterial duplex. Assessment & Plan (03/19/2024 10:48 AM CDT): Postop angio 03-03-2024 with balloon angioplasty to the left popliteal artery and left posterior tibial artery. Findings with the angio showed severe tibial disease with no filling to the foot. The ulcerations to the plantar surface of the foot are stable the left foot was warm. Ischemic rest pain symptoms have resolved. Is following up with podiatry as he has been for the wounds to the foot. Plan: Continue statin therapy, and continued follow-up with Podiatry for wound care maintenance and follow up in 1 month with a lower extremity arterial duplex Assessment & Plan (03/03/2024 11:46 AM CDT): Patient's symptoms have progressed consistent with ischemic rest pain with new ulcer plantar surface left foot nonhealing for over 2 months. Recommended left lower extremity angiogram possible intervention. Procedure indications and risks were explained. Patient understands agrees to proceed. Assessment & Plan (06/12/2023 9:41 AM PLATER APPRENTICE): Impression: Patient complains of chronic numbness to bilateral lower extremities and pins and needles sensation to bilateral feet. He has stable nondisabling claudication to bilateral lower extremities. Monophasic waveforms noted to tibial levels bilaterally seen on recent duplex. Plan: Continue ongoing risk factor modifications. - follow up in 6 months for re-evaluation with repeat lower extremity arterial doppler. Assessment & Plan (04/03/2023 9:44 AM CDT): Stable non disabling. Continue current medical management. 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 Continue offloading therapy and wound care management per Wound Service. Assessment & Plan (06/12/2023 9:47 AM PLATER APPRENTICE): Impression: Patient has an ulceration noted to the lateral aspect of the left 5th metatarsal that continues to improve. Podiatry is monitoring and providing wound care. Diabetes mellitus chronic with good glucose control. Plan: Continue recommendations as per podiatry. -continue insulin and glipizide - Recommend patient to make a sooner appointment if ulceration worsens. Patient voices understanding. Assessment & Plan (04/03/2023 9:44 AM CDT): Ulcer continues to heal slowly. Continue current treatment regimen and will hold on more invasive workup and intervention as progress is being made. If ulcer worsens have recommended proceeding with lower extremity angiogram. Assessment & Plan (03/06/2023 11:58 AM CDT): slow healing ulceration to the left 5th metatarsal the plantar surface. Present over the past 3 months. Currently treating with triple antibiotic ointment and Band- Aid and a walking boot. No purulent drainage. He denies any rest pain or claudication. Bilateral lower extremities are warm well perfused diminished Palpable distal pulses. Plan: Follow-up in 1-2 weeks with a lower extremity arterial Doppler study. Assessment & Plan (02/05/2022 11:30 AM CDT): Stressed the importance of the antibiotics and getting in with a foot doctor. Also discussed need to get labs and xrays today. He has issue with non-compliance in the past. He expressed understanding Primary hypertension 03/29/2021 Assessment & Plan (04/28/2024 12:43 PM PLATER APPRENTICE): Impression: Chronic and stable. Plan: Continue amlodipine, carvedilol, hydralazine Assessment & Plan (03/03/2024 11:46 AM CDT): Hypertension chronic controlled. Continue current medical management. Assessment & Plan (06/12/2023 9:46 AM PLATER APPRENTICE): Impression: Chronic and stable. Plan: Continue amlodipine, carvedilol, hydralazine Assessment & Plan (07/03/2021 11:21 AM PLATER APPRENTICE): Continue medications as currently precribed Assessment & Plan (03/29/2021 8:57 AM CDT): Starting coreg and amlodipine Will discuss SETH-I once hyperkalemia is resolved Hyperkalemia 03/29/2021 Assessment & Plan (03/29/2021 8:57 AM CDT): Rechecking BMP Will restart lasix daily, at 40 mg Encounter for Medicare annual wellness exam 03/03 Assessment & Plan (03/29/2021 8:56 AM CDT): Reviewed previous labs and diagnostic test results. Chronic medical problems evaluated and management plans discussed with the patient. Prescription medications, supplements, vitamins and immunizations reviewed. Wear seatbelts. Use sunscreen. Discussed healthy diet and disease prevention and controlling portions including alcohol Discussed importance of scheduling recommended screening tests. Discussed importance of regular physical examinations for health maintenance. Discussed importance of a living will, advanced directives and establishing or updating healthcare power of managing attorney document and providing our office with a copy. Stage 3a chronic kidney disease 03/29/2021 Assessment & Plan (07/03/2021 11:15 AM PLATER APPRENTICE): Saw Dr. Perez last week Needs labs today Will follow-up with renal in August Assessment & Plan (03/29/2021 2:01 PM CDT): Elevated creatinine Renal consul placed Pure hypercholesterolemia 03/29/2021 Assessment & Plan (04/03/2023 9:44 AM CDT): Hypercholesterolemia chronic and controlled. Continue Lipitor. Preventative health care 02/20/2021 Lower leg edema 02/20/2021 Assessment & Plan (02/20/2021 10:02 AM CDT): Suspect decreased kidney fucntion vs HF vs thyroid disease Checking labs Will likely start lasix for lower leg edema Type 2 diabetes mellitus wit h diabetic peripheral angiopathy without gangrene, without long-term current use of insulin 02/20/2021 Assessment & Plan (04/28/2024 12:43 PM PLATER APPRENTICE): Impression: Chronic with good glucose control. Plan: Continue glipizide Assessment & Plan (03/29/2021 2:02 PM CDT): Stop metformin Start glipizide instead Referral to renal for further management of his renal function Assessment & Plan (02/20/2021 10:02 AM CDT): hgba1c is 9.3 Checking official one with CMP and other labs Will need to start medications once we get his lab work back Immunizations Immunization Administration Dates Next Due Influenza, Quadrivalent, Hig h Dose, Preservative Free, Intrr 03/29/2021 Influenza, Unspecified 05/07/2022 Tdap 10/14/2022 Social History Tobacco Use Types Packs/Day Years Used Date Smoking Tobacco: Former Smokeless Tobacco: Never Tobacco Cessation:Counseling Given: Not Answered AUDIT-C Answer Date Recorded Q1: How often do you have a drink containing alc ohol? Monthly or less 03/03/2024 Q2: How many drinks containi ng alcohol do you have on a typical day when you are drinking? 1 or 2 03/03/2024 Q3: How often do you have si x or more drinks on one occasion? Never 03/03/2024 PHQ-2 Answer Date Recorded PHQ-2 Total Score (If total score is 3 or more points, staff should administer the PHQ-9) 0 02/05/2022 Personal Safety Answer Date Recorded Have you ever been in or are you currently in a harmful physical or emotional relationship or is someone making you feel afraid or unsafe? Denies 03/03/2024 Sex and Gender Information Value Date Recorded Sex Assigned at Not on file Legal Sex Male 1:29 AM PLATER APPRENTICE Gender Identity Not on file Sexual Orientation Not on file Last Filed Vital Signs Vital Sign Reading Time Taken Comments Blood Pressure 155/67 04/28/2024 9:32 AM PLATER APPRENTICE Pulse 69 04/28/2024 9:32 AM PLATER APPRENTICE Temperature 36.6 C (97.8 F) 03/03/2024 2:25 PM CDT Respiratory Rate 16 03/03/2024 4:10 PM CDT Oxygen Saturation 100% 03/03/2024 4:10 PM CDT Inhaled Oxygen Concentration - - Weight 68.9 kg (152 lb) 04/28/2024 9:32 AM PLATER APPRENTICE Height 170.2 cm (5' 7 ) 04/28/2024 9:32 AM PLATER APPRENTICE Body Mass Index 23.81 04/28/2024 9:32 AM PLATER APPRENTICE Plan of Treatment Not on file Medical Devices Implanted Type Area Oxygen Therapist Device Identifier Shelf Expiration Date Model / Serial / Lot [employer] V[employer] System Closure Repair Femoral Artery Suture Mediated Perclose Prostyle [id number] - [id number] Implanted:Qty: 1 on 03/03/2024 by Mando Velazco MD at [facility] [employer] 01/30/2025 [id number] / / [id number] Procedures Procedure Name Priority Date/Time Associated Diagnosis Comments EGFR STAT 03/03/2024 10:30 AM CDT Atherosclerosis of [place] artery of both lower extremities with intermittent claudication HEMOGLOBIN A1C Routine 02/05/2022 11:50 AM CDT Diabetic ulcer of left midfoot associated with type 2 diabetes mellitus, limited to breakdown of skin (HCC) US ABDOMINAL AORTIC ANEURYSM SCREENING Schedule Routine, Read Routine (OP Routine) 12/24/2021 8:52 AM CDT Former smoker ALBUMIN CREATININE RATIO, URINE Routine 06/27/2021 2:34 PM PLATER APPRENTICE Diabetic nephropathy (HCC) HEPATITIS C ANTIBODY Routine 02/20/2021 11:08 AM CDT Preventative health care Uncontrolled type 2 diabetes mellitus with hyperglycemia (HCC) LIPID PANEL Routine 02/20/2021 11:08 AM CDT Preventative health care Uncontrolled type 2 diabetes mellitus with hyperglycemia (HCC) from Last 3 Months or Most Recently Relevant to Health Maintenance Results * (ABNORMAL) eGFR (03/03/2024 10:30 AM CDT) eGFR 21(L) >=60 mL/min/1. 73 m2 Comment: Interpretive Data Reference Interval Normal >/= 90 mL/min/1.73m2 Mildly decreased* 60 - 89 mL/min/1.73m2 Mildly to moderately decreased 45 - 59 mL/min/1.73m2 Moderately to severely decreased 30 - 44 mL/min/1.73m2 Severely decreased 15 - 29 mL/min/1.73m2 Kidney Failure < 15 mL/min/1.73m2 *Relative to young adult level Estimated glomerular filtration rate is determined by the 2020 CKD-EPI equation recommended by the National Kidney Foundation (A Unifying Approach to GFR Estimation: Recommendations of the NKF-ASK Task Force on Reassessing the Inclusion of Race in Diagnosing Kidney Disease, JASN 2020). The CKD-EPI equation should not be used for patients with unstable renal function and has not been validated in children and those over 70. Current interpretive data was last reviewed 2021. Blood 03/03/2024 10:3 0 AM CDT 03/03/2024 10:35 AM CDT us Mando Velazco MD LAB BLOOD ORDERABLES Final Result [facility] [address] [facility] Department [place] [address] * (ABNORMAL) Hemoglobin A1c (02/05/2022 11:50 AM CDT) Hgb A1C 8.3(H) 4.0 - 5.6 % [facility] Comment:Testing performed by : [address] [address] Estimated Average Glucose 192 mg/dL [facility] Comment: The ADA recommends reporting an estimated Average Glucose (eAG) with all Hemoglobin A1c results using the equation derived from a study of 507 normal and diabetic adults. Minority populations were underrepresented and children were not included. (Diabetes Care 31:4815-0410, 2008). The eAG is not equivalent to a fasting glucose. Testing performed by: [address] [address] Blood 02/05/2022 11:5 0 AM CDT 02/05/2022 1:50 PM CDT Yosvany Pierson Jr., MD LAB BLOOD ORDERABLES Final Result [facility] [address] [facility] Department [place] [address] * US Abdominal Aortic Aneurysm Screening (12/24/2021 8:52 AM CDT) Anatomical Region Laterality Modality Abdomen Ultrasound 12/24/2021 12:0 6 PM CDT Narrative 12/24/2021 12:07 PM CDT EXAM DESCRIPTION: US ABDOMINAL AORTIC ANEURYSM SCREENING REASON FOR STUDY: AAA screening, smoking history (Age => 50y) TECHNIQUE: Grayscale images acquired of the aorta and stored on PACS. Selected color Doppler and spectral images recorded. COMPARISON: None. FINDINGS: AORTIC CALIBER MAXIMAL PROXIMAL: 2.0 x 2.1 cm. MID: 1.8 x 1.6 cm. DISTAL: 1.3 x 2.0 cm. ILIAC DIAMETER RIGHT: 1.1 cm. LEFT: 1.0 cm. OTHER: No other significant finding. IMPRESSION: No abdominal aortic aneurysm. REFERENCE: Please see below follow up recommendations for abdominal aortic aneurysm surveillance per Society for Vascular Surgery Guidelines: < 2.6 cm No follow up necessary 2.62.9 cm Recommended ultrasound follow up every 5 years 3.0-3.4 cm Recommended ultrasound follow up every 3 years 3.5-3.9 cm Recommended ultrasound follow up every 12 months 4.0-4.9 cm Recommended ultrasound follow up every 12 months, vascular surgery consult 5.0-5.4 cm Recommended ultrasound follow up every 6 months, vascular surgery consult >= 5.5 cm Referral to vascular surgeon Based upon Society for Vascular Surgery Guidelines: J Vasc Surgery 2008 50: s2s49; updated Jun 2017 J Vasc Surgery 67:277 THIS IS AN ELECTRONICALLY VERIFIED FINAL REPORT 12/24/2021 12:07 PM - Electronically signed by Jamin Longo M.D. CH: CORIE Report ID: [id number] Reading Location: [id number] Procedure Note Jaimn Longo Jr., MD - 12/24/2021 EXAM DESCRIPTION: US ABDOMINAL AORTIC ANEURYSM SCREENING REASON FOR STUDY: AAA screening, smoking history (Age => 49y) TECHNIQUE: Grayscale images acquired of the aorta and stored on PACS.Selected color Doppler and spectral images recorded. COMPARISON: None. FINDINGS: AORTIC CALIBER MAXIMAL PROXIMAL: 2.0 x 2.1 cm. MID: 1.8 x 1.6 cm. DISTAL: 1.3 x 2.0 cm. ILIAC DIAMETER RIGHT: 1.1 cm. LEFT: 1.0 cm. OTHER: No other significant finding. IMPRESSION: No abdominal aortic aneurysm. REFERENCE: Please see below follow up recommendations for abdominal aortic aneurysm surveillance per Society for Vascular Surgery Guidelines: < 2.6 cm No follow up necessary 2.62.9 cm Recommended ultrasound follow up every 5 years 3.0-3.4 cm Recommended ultrasound follow up every 3 years 3.5-3.9 cm Recommended ultrasound follow up every 12 months 4.0-4.9 cm Recommended ultrasound follow up every 12 months, vascularsurgery consult 5.0-5.4 cm Recommended ultrasound follow up every 6 months, vascularsurgery consult >= 5.5 cm Referral to vascular surgeon Based upon Society for Vascular Surgery Guidelines: J Vasc Surgery 2009Oct 50: s2s49; updated Jun 2017 J Vasc Surgery 67:277 THIS IS AN ELECTRONICALLY VERIFIED FINAL REPORT 12/24/2021 12:07 PM - Electronically signed by Jamin Longo M.D. CH: CORIE Report ID: [id number] Reading Location: [id number] us Yosvany Pierson Jr., MD IM US PROCEDURES Fin al Result * (ABNORMAL) Albumin Creatinine Ratio, Urine (06/27/2021 2:34 PM PLATER APPRENTICE) Albumin Ur 1,670.6 mg/L [facility] Comment: Interpretive Data No reference range established. Current interpretive data was last revised 2018. Testing performed by: [facility], [address] [place] [address]., [id number] Creatinine Ur 34.3 mg/dL [facility] Comment: Interpretive Data No reference range established. Current interpretive data was last revised 2018. Testing performed by: [facility], [address] [place] [address]., [address] Albumin Creatinine Ratio, Ur 4,871(H) 1 - 29 mg/g [facility] Comment:Testing performed by : [address] [address] Urine 06/27/2021 2:34 PM PLATER APPRENTICE 06/27/2021 4:51 PM PLATER APPRENTICE Allen Perez MD LAB URINE ORDERABLES Final Re sult Performing Organization Address [facility] de Phone Number [address] [place] [address] * Hepatitis C antibody (02/20/2021 11:08 AM CDT) Hep C Ab Nonreactive Nonreactive [facility] Comment: Interpretive Data Nonreactive: Antibodies to HCV not detected. Does NOT exclude the possibility of recent exposure to HCV. Equivocal: Equivocal for HCV antibodies. Supplemental molecular testing will be automatically performed to determine infection status in accordance with current CDC screening recommendations. Reactive: Positive for HCV antibodies. This may represent current or past HCV infection. Supplemental molecular testing will be automatically performed to determine current infection status in accordance with current CDC screening recommendations. Interpretive data was last revised on 2019. Blood 02/20/2021 11:0 8 AM CDT 02/20/2021 2:42 PM CDT us Yosvany Pierson Jr., MD LAB MICROBIOLOGY - GE NERAL ORDERABLES Final Result Performing Organization Address [facility] Co de Phone Number [place] [phone] [facility] [place] [address] * (ABNORMAL) Lipid panel (02/20/2021 11:08 AM CDT) Pathologist [facility] Cholesterol 244(H) 30 - 199 mg/dL [facility] Comment: Interpretive Data Ages < or = 19 years Acceptable: <170 mg/dL Borderline high: 170-199 mg/dL High: >or= 200 mg/dL Ages > or = 20 years Desirable: <200 mg/dL Borderline high: 200-239 mg/dL High: >or= 240 mg/dL Literature References: 1. Expert Panel on Integrated Guidelines for Cardiovascular Health and Risk Reduction in Children and Adolescents. Pediatrics 2011;128:S213 2. NCEP Expert Panel. Circulation 2004;110:227 Current Interpretive Data was last revised on 2018. Testing performed by: [address] [address] Triglycerides 140 <=149 mg/dL [facility] Comment: Interpretive Data Ages < or = 9 years Acceptable: <75 mg/dL Borderline high: 75-99 mg/dL High: >or= 100 mg/dL Ages 10 to 20 years Acceptable: <90 mg/dL Borderline high: 90-129 mg/dL High: >or= 130 mg/dL Ages > or = 20 years Desirable: <150 mg/dL Borderline high: 150-199 mg/dL High: 200-499 mg/dL Very high: >or= 499 mg/dL Literature References: 1. Expert Panel on Integrated Guidelines for Cardiovascular Health and Risk Reduction in Children and Adolescents. Pediatrics 2011;128:S213 2. NCEP Expert Panel. Circulation 2003;110:227 Current Interpretive Data was last revised on 2018. Testing performed by: [address] [address] HDL 44 >=40 mg/dL [facility] Comment: Interpretive Data Ages < or = 19 years Acceptable: >45 mg/dL Borderline low: 40-45 mg/dL Low: <40 mg/dL Ages > or = 20 years Desirable: >or= 60 mg/dL Low: <40 mg/dL Literature References: 1. Expert Panel on Integrated Guidelines for Cardiovascular Health and Risk Reduction in Children and Adolescents. Pediatrics 2011;128:S213 2. NCEP Expert Panel. Circulation 2004;110:227 Current Interpretive Data was last revised on 2018. Testing performed by: [address] [address] LDL, calculated 172(H) <=129 mg/dL [facility] Comment: Interpretive Data Ages < or = 19 years Acceptable: <110 mg/dL Borderline high: 110-129 mg/dL High: >or= 130 mg/dL Ages > or = 20 years Optimal: <100 mg/dL Near optimal: 100-129 mg/dL Borderline high: 130-159 mg/dL High: >160 mg/dL Literature References: 1. Expert Panel on Integrated Guidelines for Cardiovascular Health and Risk Reduction in Children and Adolescents. Pediatrics 2011;128:S213 2. NCEP Expert Panel. Circulation 2004;110:227 Current Interpretive Data was last revised on 2018. Testing performed by: [address] [address] Non-HDL Cholesterol 200 mg/dL [facility] Comment: Interpretive Data Ages < or = 19 years Acceptable: <120 mg/dL Borderline high: 120-144 mg/dL High: >145 mg/dL Ages > or = 20 years When triglycerides are >200 mg/dL, Non-HDL cholesterol is a secondary target of therapy with treatment goals that are 30 mg/dL greater than the LDL cholesterol target. Literature References: 1. Expert Panel on Integrated Guidelines for Cardiovascular Health and Risk Reduction in Children and Adolescents. Pediatrics 2011;128:S213 2. NCEP Expert Panel. Circulation 2004;110:227 Current Interpretive Data was last revised on 2018. Testing performed by: [address] [address] Chol/HDL ratio 6 [facility] Comment:Testing performed by : [address] [address] Blood 02/20/2021 11:0 8 AM CDT 02/20/2021 1:40 PM CDT us Yosvany Pierson Jr., MD LAB BLOOD ORDERABLES Final Result [facility] [address] [facility] Department [place] [address] from Last 3 Months or Most Recently Relevant to Health Maintenance Insurance [employer] Care Teams Diabetes Trainer Relationship Specialty Start Date End Date Jay Queen MD PCP - General Family Practice 02/26/24 Mando Velazco MD [address] [place] [address] [address] Surgeon Vascular Surgery 03/03/24
--- OUTSIDE RECORDS SUMMARY | 2024-08-13 09:59 | XMS_ITS | Clinical Summary ---
Author Organization [facility] Address [address] [place] [address] Phone Care Team Providers Care Paperhanger Apprentice Name Role Phone Jay Queen MD Primary Care Provider [phone] Mando Velazco MD Unavailable [phone] Allergies No known active allergies Medications blood-glucose [...] Problem Noted Date Diagnosed Date Atherosclerosis of [place] ar sandy of both lower extremities with intermittent claudication 04/03/2023 Assessment & Plan (04/28/2024 12:48 PM ELECTRICAL DESIGNER): Impression: Patient is status post balloon angioplasty [...] proceed. Assessment & Plan (06/12/2023 9:41 AM ELECTRICAL DESIGNER): Impression: Patient complains of chronic numbness to [...] Service. Assessment & Plan (06/12/2023 9:47 AM ELECTRICAL DESIGNER): Impression: Patient has an ulceration noted to [...] 03/29/2021 Assessment & Plan (04/28/2024 12:43 PM ELECTRICAL DESIGNER): Impression: Chronic and stable. Plan: Continue amlodipine, carvedilol, hydralazine Assessment & Plan (03/03/2024 11:46 AM CDT): Hypertension chronic controlled. Continue current medical management. Assessment & Plan (06/12/2023 9:46 AM ELECTRICAL DESIGNER): Impression: Chronic and stable. Plan: Continue amlodipine, carvedilol, hydralazine Assessment & Plan (07/03/2021 11:21 AM ELECTRICAL DESIGNER): Continue medications as currently precribed Assessment & [...] and establishing or updating healthcare power of regulatory attorney document and providing our office with a copy. Stage 3a chronic kidney disease 03/29/2021 Assessment & Plan (07/03/2021 11:15 AM ELECTRICAL DESIGNER): Saw Dr. Perez last week Needs labs [...] 02/20/2021 Assessment & Plan (04/28/2024 12:43 PM ELECTRICAL DESIGNER): Impression: Chronic with good glucose control. Plan: [...] Intrr 03/29/2021 Influenza, Unspecified 05/07/2022 Tdap 10/14/2022 Surgical History Surgery Date Site/Laterality Comments ANKLE FRACTURE SURGERY Right BALLOON ANGIOPLASTY, ARTERY 03/03/2024 Left Diagnostic CO2 aortoiliac angiogram. LLE angiogram. BA LT popliteal artery. BA LT PT artery. Medical History Medical History Date Comments Depression Hypertension Infectious viral hepatitis Chronic kidney disease, stage III (moderate) (HC C) Family History Medical History Relation Name Comments Cancer Mother Diabetes Mother's Brother Diabetes Mother's Sister Relation Name Status Comments Mother Mother's Brother Mother's Sister Social History Tobacco Use Types Packs/Day Years [...] on file Legal Sex Male 1:29 AM ELECTRICAL DESIGNER Gender Identity Not on file Sexual Orientation Not on file Obstetrics History Last Filed Vital Signs Vital Sign Reading Time Taken Comments Blood Pressure 155/67 04/28/2024 9:32 AM ELECTRICAL DESIGNER Pulse 69 04/28/2024 9:32 AM ELECTRICAL DESIGNER Temperature 36.6 C (97.8 F) 03/03/2024 2:25 PM CDT Respiratory Rate 16 03/03/2024 4:10 PM CDT Oxygen Saturation 100% 03/03/2024 4:10 PM CDT Inhaled Oxygen Concentration - - Weight 68.9 kg (152 lb) 04/28/2024 9:32 AM ELECTRICAL DESIGNER Height 170.2 cm (5' 7 ) 04/28/2024 9:32 AM ELECTRICAL DESIGNER Body Mass Index 23.81 04/28/2024 9:32 AM ELECTRICAL DESIGNER Plan of Treatment Health Maintenance Due Date Last Done Comments Colon Cancer Screening-Colonoscopy 1950 Dilated Eye Exam 1950 Hepatitis B Screening 1967 Pneumococcal vaccine 65+ (1 of 2 - PCV) 01/17/1968 Zoster Vaccine (1 of 2) 1999 Fall Risk Assessment 03/29/2022 03/29/2021, 02/21/20 21 Foot Exam 03/29/2022 03/29/2021 Well Visit 65+ 03/29/2022 03/29/2021 Albumin Creatinine Ratio, Urine 06/27/2022 2 Hemoglobin A1C 08/05/2022 02/05/2022, 05/0 07/2021, 07/03/2021, Additional history exists Depression Screening 02/05/2023 02/05/2022, 10/02/2021, 07/03/2021, Additional history exists Lipid Panel 05/07/2023 05/07/2022, 02/20/2021 Covid-19 Vaccine (2023-2 5 season) 2024 09/26/2021, 04/03/2021, 08/14/2020, Additional history exists Influenza Vaccine (#1) 2024 05/07/2022, 2020 eGFR 03/03/2025 03/03/2024, 09/0 10/2021, 12/24/2021, Additional history exists DTaP/Tdap/Td Vaccine (2 - Td or Tdap) 10/14/2032 10/14/2022 Hepatitis C Screening Completed 02/20/2021 Abdominal Aortic Aneurysm (A AA) Screen Completed 12/24/2021 Medical Devices Implanted Type Area Engineering Equipment Operator Device Identifier Shelf Expiration Date Model / Serial / Lot [employer] V[employer] System Closure Repair Femoral Artery Suture Mediated Perclose Prostyle 82784-19 - [id number] Implanted:Qty: 1 on 03/03/2024 by Mando Velazco MD at [facility] [employer] 01/30/2025 [id number] / / [id number] Procedures Procedure Name Priority Date/Time Associated Diagnosis Comments EGFR STAT 03/03/2024 10:30 AM CDT Atherosclerosis of [place] artery of both lower extremities with intermittent claudication HEMOGLOBIN A1C Routine 02/05/2022 11:50 AM CDT Diabetic ulcer of left midfoot associated with type 2 diabetes mellitus, limited to breakdown of skin (HCC) US ABDOMINAL AORTIC ANEURYSM SCREENING Schedule Routine, Read Routine (OP Routine) 12/24/2021 8:52 AM CDT Former smoker ALBUMIN CREATININE RATIO, URINE Routine 06/27/2021 2:34 PM ELECTRICAL DESIGNER Diabetic nephropathy (HCC) HEPATITIS C ANTIBODY Routine [...] MD LAB BLOOD ORDERABLES Final Result [facility] [address] [facility] Department [place] [address] * (ABNORMAL) Hemoglobin A1c (02/05/2022 11:50 AM CDT) [facility] Hgb A1C 8.3(H) 4.0 - 5.6 % ANNEL Comment:Testing performed by : [address] [address] Estimated Average Glucose 192 mg/dL ANNEL Comment: The ADA recommends reporting an estimated Average Glucose (eAG) with all Hemoglobin A1c results using the equation derived from a study of 507 normal and diabetic adults. Minority populations were underrepresented and children were not included. (Diabetes Care 31:3601-0311, 2008). The eAG is not equivalent to a fasting glucose. Testing performed by: [address] [address] Blood 02/05/2022 11:5 0 AM CDT 02/05/2022 1:50 PM CDT us Yosvany Pierson Jr., MD LAB BLOOD ORDERABLES Final Result [facility] [address] [facility] Department [place] [address] * US Abdominal Aortic Aneurysm Screening (12/24/2021 [...] Jamin Longo M.D. CH: CORIE Report ID: [id number] Reading Location: [id number] Procedure Note Jamin Longo Jr., MD - 12/24/2021 EXAM DESCRIPTION: [...] Electronically signed by Jamin Longo M.D. CH: Report ID: [id number] Reading Location: [id number] us Yosvany Pierson Jr., MD IMG US PROCEDURES Fin al Result * (ABNORMAL) Albumin Creatinine Ratio, Urine (06/27/2021 2:34 PM ELECTRICAL DESIGNER) Albumin Ur 1,670.6 mg/L ANNEL HDZ Comment: Interpretive Data No reference range established. Current interpretive data was last revised 2018. Testing performed by: [facility], [address] [place] [address]., [address] Creatinine Ur 34.3 mg/dL ANNEL Comment: Interpretive Data No reference range established. Current interpretive data was last revised 2018. Testing performed by: [facility], [address] [place] [address]., [address] Albumin Creatinine Ratio, Ur 4,871(H) 1 - 29 mg/g ANNEL Comment:Testing performed by : [facility], [address] [place] [address]., [address] Urine 06/27/2021 2:34 PM ELECTRICAL DESIGNER 06/27/2021 4:51 PM ELECTRICAL DESIGNER Allen Perez MD LAB URINE ORDERABLES Final Re sult Performing Organization Address [facility] Co de Phone Number [place] [id number] [facility] [place] [address] * Hepatitis C antibody (02/20/2021 11:08 AM CDT) Hep C Ab Nonreactive Nonreactive ANNEL Comment: Interpretive Data Nonreactive: Antibodies to HCV [...] 8 AM CDT 02/20/2021 2:42 PM CDT Yosvany Pierson Jr., MD LAB MICROBIOLOGY - GE NERAL ORDERABLES Final Result Performing Organization Address City/[facility] Co de Phone Number [place] [phone] [facility] [place] [address] * (ABNORMAL) Lipid panel (02/20/2021 11:08 AM CDT) Cholesterol 244(H) 30 - 199 mg/dL ANNEL [...] last revised on 2018. Testing performed by: [address] [address] Triglycerides 140 <=149 mg/dL ANNEL Comment: Interpretive [...] last revised on 2018. Testing performed by: [address] [address] HDL 44 >=40 mg/dL ANNEL Comment: Interpretive [...] last revised on 2018. Testing performed by: [address] [address] LDL, calculated 172(H) <=129 mg/dL ANNEL Comment: [...] last revised on 2018. Testing performed by: [address] [address] Non-HDL Cholesterol 200 mg/dL ANNEL HDZ Comment: Interpretive Data Ages < or = [...] last revised on 2018. Testing performed by: [address] [address] Chol/HDL ratio 6 ANNEL HDZ Comment:Testing performed by : [address] [address] Blood 02/20/2021 11:0 8 AM CDT 02/20/2021 1:40 PM CDT us Yosvany Pierson Jr., MD LAB BLOOD ORDERABLES Final Result ANNEL HDZ [address] [facility] Department [place] [address] from Last 3 Months or Most Recently Relevant to Health Maintenance Insurance [employer] Care Teams Paperhanger Apprentice Relationship Specialty Start Date End Date Jay Queen MD PCP - General Family Practice 02/26/24 Mando Velazco MD [address] [place] [address] [address] Surgeon Vascular Surgery 03/03/24
--- OUTSIDE RECORDS SUMMARY | 2024-08-13 09:59 | XMS_ITS ---
Author Organization [facility] Address [address] [place], [place] [id number] Care Team Providers Care Marksmanship Instructor Name Role Phone BRIDGETTE CRUZ Unavailable [phone] Shalom Adame Unavailable Unavailable REASON FOR VISIT transportation Encounters Encounter Location Date Provider Diagnosis [facility] [address] [place], [place] [id number] 12/02/2023 BRIDGETTE CRUZ Plan Of Treatment Next Appt Details Provider Name:BRIDGETTE ERWIN, 10/04/2024 10:10:00 AM, [address], [place], [place], [id number], Progress Notes * DAVID KELLYDOB:1950 ( 74 yo M)Acc No.[id number]:12/02/2023 Patient: Hailey LENORERAJESHNY Provider: Zach Cruz DPM :1950 A ge:73 Y S ex:Male Date:12/02/2023 Address:[address] [facility] Subjective: * Chief Complaints: * 1 . Transportation. * Medical History: Objective: * Vitals: Assessment: Plan: * Treatment: * Billing Information: * Visit Code: * Procedure Codes: * Electronic signature of BRIDGETTE CRUZ DPM on 08/13/2024 at 09:59 AM CDT Sign off status: Pending * Provider: Zach Cruz DPM Date: 0 12/02/2023 Generated for Naomi jose/Natalia/eTjudith on: 08/13/2024 09:59 AM CDT
--- OUTSIDE RECORDS SUMMARY | 2024-08-13 09:59 | XMS_ITS | Patient Health Record ---
Author Organization [facility] Address [address] [place], [place] [id number] Care Team Providers Care Tax Record Clerk Name Role Phone BRIDGETTE MARTINEZ Unavailable [phone] Shalom Adame Unavailable Unavailable Allergies No Known Allergies Reason For Referral No Information Immunizations Vaccine Route Administration Date Status Comme nts Influenza, high dose seasonal Unknown 02/28/2023 Admini stered Vital Signs Height-cm 170.18 cm 10/07/2023 Weight-kg 66.68 kg 10/07/2023 Height 67 in 10/07/2023 Weight 147 lbs 10/07/2023 BMI 23.02 kg/m2 10/07/2023 Encounters Encounter Location Date Provider Diagnosis [facility] [address] [place], [place] [id number] 08/26/2023 BRIDGETTE MARTINEZ Non-pressure chronic ulcer of other part of left foot limited to breakdown of skin L97.521 ; Ingrowing nail L60.0 ; Atherosclerosis of [place] arteries of extremities with intermittent claudication, bilateral legs I70.213 and Left foot pain M79.672 [facility] [address] [place], [place] [id number] 09/16/2023 BRIDGETTE MARTINEZ Non-pressure chronic ulcer of other part of left foot limited to breakdown of skin L97.521 ; Ingrowing nail L60.0 ; Atherosclerosis of [place] arteries of extremities with intermittent claudication, bilateral legs I70.213 and Left foot pain M79.672 [facility] [address] [place], [place] [id number] 10/07/2023 BRIDGETTE MARTINEZ Non-pressure chronic ulcer of other part of left foot limited to breakdown of skin L97.521 ; Ingrowing nail L60.0 ; Atherosclerosis of [place] arteries of extremities with intermittent claudication, bilateral legs I70.213 and Left foot pain M79.672 [facility] [address] [facility] [address] [place], [place] [id number] 11/04/2023 BRIDGETTE MARTINEZ Non-pressure chronic ulcer of other part of left foot limited to breakdown of skin L97.521 ; Ingrowing nail L60.0 ; Atherosclerosis of [place] arteries of extremities with intermittent claudication, bilateral legs I70.213 and Left foot pain M79.672 [facility] [address] [facility] [address] [place], [place] [id number] 07/26/2024 BRIDGETTE MARTINEZ Non-pressure chronic ulcer of other part of left foot limited to breakdown of skin L97.521 ; Ingrowing nail L60.0 ; Atherosclerosis of [place] arteries of extremities with intermittent claudication, bilateral legs I70.213 and Left foot pain M79.672 Assessments Encounter Date Diagnosis (ICD Code) Assessment Notes Treatment Notes Treatment Clinical Notes Section Notes 08/26/2023 Ingrowing nail (ICD-10 - L60.0) 08/26/2023 Non-pressure chronic ulcer of other part of left foot limited to breakdown of skin (ICD-10 - L97.521) 09/16/2023 Non-pressure chronic ulcer of other part of left foot limited to breakdown of skin (ICD-10 - L97.521) 10/07/2023 Ingrowing nail (ICD-10 - L60.0) 10/07/2023 Non-pressure chronic ulcer of other part of left foot limited to breakdown of skin (ICD-10 - L97.521) 11/04/2023 Non-pressure chronic ulcer of other part of left foot limited to breakdown of skin (ICD-10 - L97.521) 07/26/2024 Non-pressure chronic ulcer of other part of left foot limited to breakdown of skin (ICD-10 - L97.521) 07/26/2024 Ingrowing nail (ICD-10 - L60.0) 10/07/2023 Atherosclerosis of [place] arteries of extremities with intermittent claudication, bilateral legs (ICD-10 - I70.213) 11/04/2023 Ingrowing nail (ICD-10 - L60.0) 08/26/2023 Atherosclerosis of [place] arteries of extremities with intermittent claudication, bilateral legs (ICD-10 - I70.213) 09/16/2023 Ingrowing nail (ICD-10 - L60.0) 08/26/2023 Left foot pain (ICD-10 - M79.672) 09/16/2023 Atherosclerosis of [place] arteries of extremities with intermittent claudication, bilateral legs (ICD-10 - I70.213) 10/07/2023 Left foot pain (ICD-10 - M79.672) 11/04/2023 Atherosclerosis of [place] arteries of extremities with intermittent claudication, bilateral legs (ICD-10 - I70.213) 07/26/2024 Atherosclerosis of [place] arteries of extremities with intermittent claudication, bilateral legs (ICD-10 - I70.213) 07/26/2024 Left foot pain (ICD-10 - M79.672) 11/04/2023 Left foot pain (ICD-10 - M79.672) 09/16/2023 Left foot pain (ICD-10 - M79.672) 08/26/2023 Other The ulcer was debrided down to bleeding tissue. A dry sterile dressing was applied. The patient was given instruction on home dressing and told to use betadine ointment on the wound. The patient was instructed to minimize pressure on the wound and to call the office immediately if the wound should start to worsen. Following skin prep, the offending nail border was debrided without anesthesia. The patient was instructed on monitoring for infection or recurrence. 09/16/2023 Other The ulcer was debrided down to bleeding tissue. A dry sterile dressing was applied. The patient was given instruction on home dressing and told to use betadine ointment on the wound. The patient was instructed to minimize pressure on the wound and to call the office immediately if the wound should start to worsen. 10/07/2023 Other The ulcer was debrided. Pt advised to d/c wound care and call if they get worse. 11/04/2023 Other The ulcer was debrided. Pt advised to resume wound care and call if they get worse. 07/26/2024 Other All corns or calluses, as described in the note above, were cut and pared utilizing a #15 blade Plan Of Treatment Next Appt Details Provider Name:BRIDGETTE ERWIN, 10/04/2024 10:10:00 AM, [address] [facility] [address], [place], [place], [phone], Insurance Providers Payer Name Payer Address Payer Phone Subscriber Number Group Number Insured Name Patient Relationship to Insured Coverage Start Date Coverage End Date [facility] [address] [address] [place] [id number] DAVID KELLY Self - patient is the insured Medical (General) History Medical History History ICD Code ACID REFLUX HEPATITIS LEG,FEET CRAMPS OPEN SORES DIABETIC TYPE 2
[2024-08-13 10:06] LABS: Albumin Level 4.5 g/dL (3.5-5.1); Anion Gap 13 mmol/L (4-12); Blood Urea Nitrogen 82 mg/dL (9-20); Calcium 9.9 mg/dL (8.4-10.2); Carbon Dioxide 31 mmol/L (22-30); Chloride 98 mmol/L (98-107); Estimated Glomerular Filt Rate 10; Glucose 92 mg/dL (65-110); Phosphorus 5.8 mg/dL (2.5-4.5); Sodium 142 mmol/L (137-145)
[2024-08-13 10:06] LABS: Creatinine Urine 63.1 mg/dL; Total Protein Urine Random 55 mg/dL; Ur Ttl Prot Creatinine Ratio 0.87 mg/mg (0-0.20)
[2024-08-13 10:11] LABS: Parathyroid Intact 55.1 pg/mL (14.5-75.2)
== END 2024-08-13 09:25 | disposition home or self-care (01) ==
PROVIDERS: PCP Family Medicine; Visit Provider Internal Medicine Nephrology
DX: N18.5 Chronic kidney disease, stage 5 (principal)
CPT/HCPCS: 36415; 80069; 82570; 83970; 84156; 85027

== ENCOUNTER 2024-10-08 10:21 | Outpatient (CLI) | payer MEDICARE, SELFPAY ==
--- OUTSIDE RECORDS SUMMARY | 2024-10-08 10:27 | XMS_ITS | Clinical Summary ---
Author Organization [facility] Address [address] [place] [address] Care Team Providers Care Pumper Gauger Apprentice Name Role Phone Charla Jones MD Unavailable Allergies No known active allergies Medications calcitriol [...] 22 Active Cholecalciferol (VITAMIN D) 50 MCG (2000 UT) CapIndications:Vit montenegro D insufficiency Take 1 tablet by mouth daily. 30 capsule 07/26/19 23 Active gentamicin (GARAMYCIN) 0.1 % cream Apply topically 3 (three) times daily. 30 g 1 08/17/19 23 Active furosemide (LASIX) 40 MG tabletIndications: CKD (chronic kidney disease) stage 4, GFR 15-29 ml/min ([facility]/HCC) Take 1 tablet by mouth twice [...] with CKD (chronic kidney disease) stage IV ([facility]HCC) Take 1 tablet (50 mg total) by mouth 3 (three) times daily. 270 tablet 10/28/19 24 Active gabapentin (NEURONTIN) 100 MG capsuleIndications :Diabetic polyneuropathy associated with type 2 diabetes mellitus ([facility] H[facility]/HCC) Take 1 capsule (100 mg total) by mouth 3 (three) times daily. 270 capsule 3 12/01/19 24 025 Active glipiZIDE (GLUCOTROL) 5 MG tabletIndications: Type 2 diabetes mellitus with stage 4 chronic kidney disease, without long-term current use of insulin ([facility] H[facility]/HCC),Diabetic ulcer of left midfoot associated with type 2 diabetes mellitus, limited to breakdown of skin ([facility]/HCC) Take 1 tablet (5 mg total) [...] Tinnitus of both ears 10/13/2023 Atherosclerosis of [place] ar sandy of both lower extremities with [...] asso ciated with type 2 diabetes mellitus ([facility]) 01/09/2023 Secondary hyperparathyroidism ([facility]) 10/15/19 23 Peripheral vascular disease 08/07/2022 Benign hypertension with CKD (chronic kidney disease) stage IV ([facility]) 02/05/2022 Diabetic ulcer of left midfo ot associated with type 2 diabetes mellitus, limited to breakdown of skin ([facility]) 02/05/2022 Overview (09/08/2023): Last Assessment & Plan: [...] hyperglycemia, without long-term current use of insulin ([facility]) 02/20/2021 Overview (05/07/2022): Last Assessment & Plan: [...] carvedilol, hydralazine Preventative health care 02/20/202105/2022 Immunizations Immunization Administration Dates Next Due Fluzone High Dose [...] on file Legal Sex Male 10:31 AM STRUCTURAL STEEL DETAILER Gender Identity Not on file Sexual Orientation Not on file Last Filed Vital Signs Vital Sign Reading Time Taken Comments Blood Pressure 171/78 10/13/2023 9:34 AM CDT Pulse 69 10/13/2023 9:34 AM CDT Temperature 36.6 C (97.8 F) 10/13/2023 9:03 AM CDT Respiratory Rate 16 07/09/2023 10:47 AM STRUCTURAL STEEL DETAILER Oxygen Saturation 99% 10/13/2023 9:03 AM CDT Inhaled Oxygen Concentration - - Weight 68.3 kg (150 lb 8 oz) 10/13/2023 9:03 AM CDT Height 170.2 cm (5' 7 ) 10/13/2023 9:03 AM CDT Body Mass Index 23.57 10/13/2023 9:03 AM CDT Plan of Treatment Health Maintenance Due Date Last Done Comments ASCVD Statin 1950 Colorectal Cancer Screening Colonoscopy (10 Years) 1950 Kidney Health Evaluation 1950 Zoster Vaccines (1 of 2) 1999 ASCVD LDL 05/07/2023 05/07/2022 Lipid Panel 05/07/2023 05/07/2022, 02/20/2021 RSV Immunization or 60+ Years (1 - 1-dose 75+ series) 01/17/2024 COVID-19 Vaccine ( season) 2024 05/16/2023, 03/11/2022, 09/26/2021, Additional history exists Hemoglobin A1C 02/29/2024 08/29/2023, 0806/2022, 10/14/2022, Additional history exists PHQ-2 (Physician [place]) 06/02/2024 10/13/2023 Diabetes: Retinopathy Eye Exam 02/06/2025 02/06/2023 Annual Medicare Wellness Visit 03/17/2025 Postponed from 2014 (Patient Refused) DTaP, Tdap and Td Vaccines (2 - Td or Tdap) 10/14/2032 10/14/2022 Hepatitis C Completed 05/07/2022 Pneumococcal Vaccine: 50+ Years Completed 10/14/2022 Meningococcal B Vaccine Aged [...] HEPATITIS C ANTIBODY Routine 05/07/2022 12:58 PM STRUCTURAL STEEL DETAILER Annual physical exam LIPID PANEL Routine 05/07/2022 12:58 PM STRUCTURAL STEEL DETAILER Mixed hyperlipidemia from Last 3 Months or Most Recently Relevant to Health Maintenance Results * (ABNORMAL) HEMOGLOBIN, GLYCOSYLATED (08/29/2023 11:07 AM CDT) HGB A1C 6.7(H) <5.7 % 08/29/2023 12:11 PM CDT [facility] Comment: ADA GUIDELINES 2010 5.7 TO 6.4% INCREASED RISK OF DIABETES > OR = 6.5% CONSISTENT WITH DIABETES ESTIMATED AVG GLUCOSE 146 mg/dL 08/29/2023 12:11 PM CDT [facility] 08/29/2023 11:0 7 AM CDT us Shalom Adame DO LABORATORY Final Resul t [facility] [address] [place] [address], [place] [phone] * DIABETIC RETINOPATHY EXAM (NEGATIVE)(SCAN) (02/06/2023) [facility] Scanned SCANNING Final Resu lt [facility] * (ABNORMAL) LIPID PANEL (05/07/2022 12:58 PM STRUCTURAL STEEL DETAILER) Pathologist [facility] CHOLESTEROL 205(H) <200 MG/DL 05/07/2022 9:41 PM STRUCTURAL STEEL DETAILER [facility] TRIGLYCERIDES 127 <150 MG/DL 05/07/2022 9:41 PM STRUCTURAL STEEL DETAILER [facility] HDL 51 >40 MG/DL 05/07/2022 9:41 PM STRUCTURAL STEEL DETAILER [facility] LDL-C 129(H) <100 MG/DL 05/07/2022 9:41 PM STRUCTURAL STEEL DETAILER [facility] VLDL CALCULATION 25 5 - 28 MG/DL 05/07/2022 9:41 PM STRUCTURAL STEEL DETAILER [facility] CHOL/HDL RATIO 4.0 0.0 - 4.0 05/07/2022 9:41 PM STRUCTURAL STEEL DETAILER [facility] LDL/HDL 2.5(H) 0.41 - 2.13 05/07/2022 9:41 PM STRUCTURAL STEEL DETAILER [facility] NON HDL CHOLESTEROL 154(H) <140 MG/DL 05/07/2022 9:41 PM STRUCTURAL STEEL DETAILER [facility] 05/07/2022 12:5 8 PM STRUCTURAL STEEL DETAILER Brittney Pate MD LABORATORY Final Result Performing Organization Address City/[facility]/ZIP Co de Phone Number [facility] [address] [facility] [place] [address], [place] [phone] * HEPATITIS C ANTIBODY (05/07/2022 12:58 PM STRUCTURAL STEEL DETAILER) HEPATITIS C AB NON-REACTI VE NON-REACT MIRNA 05/08/2022 6:56 PM STRUCTURAL STEEL DETAILER [facility] Comment: ANTIBODIES TO HCV NOT DETECTED. DOES NOT EXCLUDE THE POSSIBILITY OF EXPOSURE TO HCV. 05/07/2022 12:5 8 PM STRUCTURAL STEEL DETAILER Brittney Pate MD LABORATORY Final Result [facility] [address] [place] [address], [id number] from Last 3 Months or Most Recently Relevant to Health Maintenance Insurance [facility] Care Teams Pumper Gauger Apprentice Relationship Specialty Start Date End Date Charla Jones MD [address] [facility], [address] [address] Consulting Physician NEPHROLOGY 05/13/22
--- OUTSIDE RECORDS SUMMARY | 2024-10-08 10:27 | XMS_ITS | Referral Summary ---
Author Organization [facility] Address [address] [place] [address] Phone Care Team Providers Care Machine Deburrer Name Role Phone Jay Queen MD Primary Care Provider [phone] Mando Velazco MD Unavailable [phone] Encounters Date Type Department Care Team Description 10/01/2024 Telephone [facility] Medical [facility] Cardiology [address] [place] [address] [phone] Sultan Ej Bhandari MD 09/27/2024 Telephone [facility] Cardiology [address] [place] [address] [phone] Richmond Soto MD 09/24/2024 Telephone [facility] D[facility] at [address] [place] [address] [phone] Roys Godinez NP Referral/Request for Cardiac Clearance (LUE AVF vs AVG Creation to be scheduled once clearance obtained. ) 09/24/2024 8:21 AM CDT - 09/24/2024 11:59 PM CDT Hospital [facility] at [address] [phone] Chronic kidney disease, stage 4 (severe) (HCC) (Primary Dx); Primary hypertension; Type 2 diabetes mellitus with diabetic peripheral angiopathy without gangrene, without long-term current use of insulin (HCC) Discharge Disposition: Discharge to home or self care 09/24/2024 8:21 AM CDT - 09/24/2024 11:59 PM CDT Hospital Encounter [facility] Medical Office Building 2 Vascular [address] [facility] [address] [place] [address] Pre-operative exam; Chronic kidney disease, stage 4 (severe) (HCC) Discharge Disposition: Discharge to home or self care 09/06/2024 Telephone [facility] Vascular and Vein Surgery [address] [facility] [address] [place] [address] Saadia De Leon from Last 3 Months Allergies No known active allergies Medications blood-glucose [...] Problem Noted Date Diagnosed Date 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 Assessment & Plan (06/12/2023 9:41 AM BOTTLING ATTENDANT): Impression: Patient complains of chronic numbness to [...] disease, stage 4 (severe) (HCC) 0 02/05/2022 Assessment & Plan (09/24/2024 1:21 PM CDT): Impression: Patient with chronic kidney disease requiring evaluation for permanent access for dialysis. Patient is right-hand dominant and denies any upper extremity DVTs/trauma/ports her lines to the upper chest. Venous mapping to bilateral upper extremities reveals veins not suitable for fistula creation. Plan: Recommend left upper extremity AV fistula/graft creation for dialysis access. Risks of the procedure communicate with the patient to include risk of bleeding, risk of infection, risk of nerve damage, risk of additional surgery, and risk of limb and life. Educated the patient regarding routine surveillance to ensure his access is functioning properly and to ensure no stenosis has occurred. Educated patient of the possibility of further surgery if his fistula/graft becomes stenosis. Educated the patient of arterial steal syndrome and the possibility of occurrence post fistula/graft creation. Patient voices understanding to all these risks explained to him. 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 Continue offloading therapy and wound care management per Wound Service. Assessment & Plan (06/12/2023 9:47 AM BOTTLING ATTENDANT): Impression: Patient has an ulceration noted to [...] understanding Primary hypertension 03/29/2021 Assessment & Plan (09/24/2024 1:21 PM CDT): Impression: Chronic stable. Plan: Continue amlodipine, carvedilol, hydralazine. Assessment & Plan (04/28/2024 12:43 PM BOTTLING ATTENDANT): Impression: Chronic and stable. Plan: Continue amlodipine, carvedilol, hydralazine Assessment & Plan (03/03/2024 11:46 AM CDT): Hypertension chronic controlled. Continue current medical management. Assessment & Plan (06/12/2023 9:46 AM BOTTLING ATTENDANT): Impression: Chronic and stable. Plan: Continue amlodipine, carvedilol, hydralazine Assessment & Plan (07/03/2021 11:21 AM BOTTLING ATTENDANT): Continue medications as currently precribed Assessment & [...] and establishing or updating healthcare power of attorney recruiter document and providing our office with a copy. Stage 3a chronic kidney disease 03/29/2021 Assessment & Plan (07/03/2021 11:15 AM BOTTLING ATTENDANT): Saw Dr. Perez last week Needs labs [...] use of insulin 02/20/2021 Assessment & Plan (09/24/2024 1:22 PM CDT): Impression: Chronic with good glucose control. Plan: Continue glipizide Assessment & Plan (04/28/2024 12:43 PM BOTTLING ATTENDANT): Impression: Chronic with good glucose control. Plan: [...] on file Legal Sex Male 1:29 AM BOTTLING ATTENDANT Gender Identity Not on file Sexual Orientation Not on file Last Filed Vital Signs Vital Sign Reading Time Taken Comments Blood Pressure 141/52 09/24/2024 8:34 AM CDT Pulse 60 09/24/2024 8:34 AM CDT Temperature 36.7 C (98.1 F) 09/24/2024 8:34 AM CDT Respiratory Rate 16 03/03/2024 4:10 PM CDT Oxygen Saturation 99% 09/24/2024 8:34 AM CDT Inhaled Oxygen Concentration - - Weight 65.8 kg (145 lb) 09/24/2024 8:34 AM CDT Height 170.2 cm (5' 7 ) 09/24/2024 8:34 AM CDT Body Mass Index 22.71 09/24/2024 8:34 AM CDT Plan of Treatment Not on file Medical Devices Implanted Type Area Live Study Manager Device Identifier Shelf Expiration Date Model / Serial / Lot Ng Vascular System Closure Repair Femoral Artery Suture Mediated Perclose Prostyle [id number] - [id number] Implanted:Qty: 1 on 03/03/2024 by Mando Velazco MD at [facility] [employer] 01/30/2025 [id number] / / [id number] Procedures Procedure Name Priority Date/Time Associated Diagnosis Comments US VEIN MAPPING DUPLEX UPPER EXTREMITY BILATERAL Schedule Routine, Read Routine (OP Routine) 09/24/2024 9:57 AM CDT Pre-operative exam Chronic kidney disease, stage 4 (severe) (HCC) EGFR STAT 03/03/2024 10:30 AM CDT Atherosclerosis of eastern shoshone artery of both lower extremities with intermittent claudication HEMOGLOBIN A1C Routine 02/05/2022 11:50 AM CDT Diabetic ulcer of left midfoot associated with type 2 diabetes mellitus, limited to breakdown of skin (HCC) US ABDOMINAL AORTIC ANEURYSM SCREENING Schedule Routine, Read Routine (OP Routine) 12/24/2021 8:52 AM CDT Former smoker ALBUMIN CREATININE RATIO, URINE Routine 06/27/2021 2:34 PM BOTTLING ATTENDANT Diabetic nephropathy (HCC) HEPATITIS C ANTIBODY Routine 02/20/2021 11:08 AM CDT Preventative health care Uncontrolled type 2 diabetes mellitus with hyperglycemia (HCC) LIPID PANEL Routine 02/20/2021 11:08 AM CDT Preventative health care Uncontrolled type 2 diabetes mellitus with hyperglycemia (HCC) from Last 3 Months or Most Recently Relevant to Health Maintenance Results * US Vein Mapping Duplex Upper Extremity Bilateral (09/24/2024 9:57 AM CDT) Anatomical Region Laterality Modality Vascular Bilateral Ultrasound 09/24/2024 9:14 AM CDT Narrative 09/24/2024 11:29 AM CDT Upper Extremity Vein Mapping Report Patient Name: DAVID KELLY : 1950 (74y 8m) Gender: M Study Date: 09/24/2024 09:14:31 AM Technical Support Technician: Bea Alexander Provider: NOEL VELAZCO Quality: Adequate Ref Provider: NOEL VELAZCO PROCEDURES: Vascular Report: A non-invasive vascular imaging study of the bilateral upper extremity was performed to map the superficial veins for use as dialysis access using B- mode ultrasound, color flow, and spectral Doppler. INDICATIONS: Z01.818 Encounter for other preprocedural examination and N18.4 Chronic kidney disease, stage 4 (severe). COMPARISONS: No prior exams. VEINS: Right Value Left Value Rt Cephalic Vein Forearm Prx Dim 2.20 mm Lt Cephalic Vein Upper Arm Prx Dim 2.50 mm Rt Cephalic Vein Forearm Mid Dim 1.90 mm Lt Cephalic Vein Upper Arm Mid Dim 1.30 mm Rt Cephalic Vein Forearm Dst Dim 1.50 mm Lt Cephalic Vein Upper Arm Dst Dim 1.70 mm Rt Basilic Vein Upper Arm Prx Dim 3.10 mm Lt Cephalic Vein Forearm Prx Dim 1.70 mm Rt Basilic Vein Upper Arm Mid Dim 2.80 mm Lt Cephalic Vein Forearm Mid Dim 1.80 mm Rt Basilic Vein Upper Arm Dst Dim 2.10 mm Lt Cephalic Vein Forearm Dst Dim 2.20 mm Rt Basilic Vein Forearm Prx Dim 1.50 mm Lt Basilic Vein Upper Arm Prx Dim 2.60 mm Rt Axilla Vein Dst Dim 6.20 mm Lt Basilic Vein Upper Arm Mid Dim 3.30 mm Lt Basilic Vein Upper Arm Dst Dim 2.40 mm Lt Basilic Vein Forearm Prx Dim 1.10 mm Lt Axilla Vein Dst Dim 4.60 mm ARTERIES: Right Value Left Value Rt Brach Trans Dim 4.80 mm Lt Brach Trans Dim 5.20 mm Rt Radial AP Dim 2.80 mm Lt Radial AP Dim 2.80 mm FINDINGS: Right: The right cephalic and basilic veins were imaged and measured for possible hemodialysis access. Negative for deep and superficial vein thrombosis in the right upper extremity. The cephalic vein comes off a basilic vein branch at the antecubital fossa. Left: The left cephalic and basilic veins were imaged and measured for possible hemodialysis access. Negative for deep and superficial vein thrombosis in the left upper extremity. CONCLUSIONS: 1. Cephalic and basilic veins are not sizable for fistula. ATTESTATION: I have reviewed and interpreted the pertinent images and measurements of this study. I attest to the conclusions in the final report that is provided above. Electronically Signed By: Noel Velazco MD 09/24/2024 10:48:22 AM CDT Procedure Note Noel Velazco MD - 09/24/2024 Upper Extremity Vein Mapping Report Patient Name: DAVID KELLY : 1950 (74y 8m) Gender: M Study Date: 09/24/2024 09:14:31 AM Technical Support Technician: Bea Alexander Provider: NOEL VELAZCO Quality: Adequate Ref Provider: NOEL VELAZCO PROCEDURES: Vascular Report: A non-invasive vascular imaging study of the bilateralupper extremity was performed to map the superficial veins for use as dialysis accessusing B- mode ultrasound, color flow, and spectral Doppler. INDICATIONS: Z01.818 Encounter for other preprocedural examination and N18.4 Chronickidney disease, stage 4 (severe). COMPARISONS: No prior exams. VEINS: Right Value Left Value Rt Cephalic Vein Forearm Prx Dim 2.20 mm Lt Cephalic Vein Upper Arm PrxDim 2.50 mm Rt Cephalic Vein Forearm Mid Dim 1.90 mm Lt Cephalic Vein Upper Arm MidDim 1.30 mm Rt Cephalic Vein Forearm Dst Dim 1.50 mm Lt Cephalic Vein Upper Arm DstDim 1.70 mm Rt Basilic Vein Upper Arm Prx Dim 3.10 mm Lt Cephalic Vein Forearm Prx Dim1.70 mm Rt Basilic Vein Upper Arm Mid Dim 2.80 mm Lt Cephalic Vein Forearm Mid Dim1.80 mm Rt Basilic Vein Upper Arm Dst Dim 2.10 mm Lt Cephalic Vein Forearm Dst Dim2.20 mm Rt Basilic Vein Forearm Prx Dim 1.50 mm Lt Basilic Vein Upper Arm Prx Dim2.60 mm Rt Axilla Vein Dst Dim 6.20 mm Lt Basilic Vein Upper Arm Mid Dim 3.30 mm Lt Basilic Vein Upper Arm Dst Dim 2.40 mm Lt Basilic Vein Forearm Prx Dim 1.10 mm Lt Axilla Vein Dst Dim 4.60 mm ARTERIES: Right Value Left Value Rt Brach Trans Dim 4.80 mm Lt Brach Trans Dim 5.20 mm Rt Radial AP Dim 2.80 mm Lt Radial AP Dim 2.80 mm FINDINGS: Right: The right cephalic and basilic veins were imaged and measured forpossible hemodialysis access. Negative for deep and superficial vein thrombosis inthe right upper extremity. The cephalic vein comes off a basilic vein branch at theantecubital fossa. Left: The left cephalic and basilic veins were imaged and measured forpossible hemodialysis access. Negative for deep and superficial vein thrombosis inthe left upper extremity. CONCLUSIONS: 1. Cephalic and basilic veins are not sizable for fistula. ATTESTATION: I have reviewed and interpreted the pertinent images and measurements ofthis study. I attest to the conclusions in the final report that is provided above. Electronically Signed By: Noel Velazco MD 09/24/2024 10:48:22 AM CDT us Noel Velazco MD [facility] US PROCEDURES Final Result * (ABNORMAL) eGFR (03/03/2024 10:30 AM CDT) [...] MD LAB BLOOD ORDERABLES Final Result ANN[facility] [address] [facility] Department [place] [address] * (ABNORMAL) Hemoglobin A1c (02/05/2022 11:50 AM CDT) Hgb A1C 8.3(H) 4.0 - 5.6 % ANNEL Comment:Testing performed by : [address] [address] Estimated Average Glucose 192 mg/dL ANNEL Comment: The ADA recommends reporting an estimated Average Glucose (eAG) with all Hemoglobin A1c results using the equation derived from a study of 507 normal and diabetic adults. Minority populations were underrepresented and children were not included. (Diabetes Care 31:2736-9179, 2008). The eAG is not equivalent to a fasting glucose. Testing performed by: [address] [address] Blood 02/05/2022 11:5 0 AM CDT 02/05/2022 1:50 PM CDT Yosvany Pierson Jr., MD LAB BLOOD ORDERABLES Final Result [facility] [address] [facility] Department [place] [address] * US Abdominal Aortic Aneurysm Screening (12/24/2021 [...] Jamin Longo M.D. CH: CORIE Report ID: [id number] Reading Location: [id number] Procedure Note Jamin Longo Jr., MD - [...] by Jamin Longo M.D. CH: Report ID: [id number] Reading Location: [id number] us Yosvany Pierson Jr., MD [facility] US PROCEDURES Fin al Result * (ABNORMAL) Albumin Creatinine Ratio, Urine (06/27/2021 2:34 PM BOTTLING ATTENDANT) Albumin Ur 1,670.6 mg/L ANNEL HDZ Comment: Interpretive Data No reference range established. Current interpretive data was last revised 2018. Testing performed by: [facility], [address] [place] [address]., [address] Creatinine Ur 34.3 mg/dL ANNEL Comment: Interpretive Data No reference range established. Current interpretive data was last revised 2018. Testing performed by: [facility], [address] [place] [address]., [address] Albumin Creatinine Ratio, Ur 4,871(H) 1 - 29 mg/g ANNEL Comment:Testing performed by : [address] [address] Urine 06/27/2021 2:34 PM BOTTLING ATTENDANT 06/27/2021 4:51 PM BOTTLING ATTENDANT Allen Perez MD LAB URINE ORDERABLES Final Re sult Performing Organization Address [facility] de Phone Number [address] [place] [address] * Hepatitis C antibody (02/20/2021 11:08 AM CDT) Pathologist [facility] Hep C Ab Nonreactive Nonreactive [facility] Comment: Interpretive Data Nonreactive: Antibodies to HCV [...] NERAL ORDERABLES Final Result Performing Organization Address [facility] Co de Phone Number [address] [place] [address] * (ABNORMAL) Lipid panel (02/20/2021 11:08 AM CDT) Pathologist [facility] Cholesterol 244(H) 30 - 199 mg/dL ANNEL [...] last revised on 2018. Testing performed by: [address] [address] Triglycerides 140 <=149 mg/dL ANNEL Comment: Interpretive [...] last revised on 2018. Testing performed by: [address] [address] HDL 44 >=40 mg/dL ANNEL Comment: Interpretive [...] last revised on 2018. Testing performed by: [address] [address] LDL, calculated 172(H) <=129 mg/dL ANNEL Comment: [...] last revised on 2018. Testing performed by: [address] [address] Non-HDL Cholesterol 200 mg/dL ANNEL Comment: Interpretive [...] last revised on 2018. Testing performed by: [address] [address] Chol/HDL ratio 6 ANNEL Comment:Testing performed by : [address] [address] Blood 02/20/2021 11:0 8 AM CDT 02/20/2021 1:40 PM CDT us Yosvany Pierson Jr., MD LAB BLOOD ORDERABLES Final Result ANN[facility] [address] [facility] Department [place] [address] from Last 3 Months or Most Recently Relevant to Health Maintenance Insurance [facility] MEDICARE [facility]AGE Care Teams Machine Deburrer Relationship Specialty Start Date End Date Jay Queen MD PCP - General Family Practice 02/26/24 Mando Velazco MD [address] [facility] [address] [place] [address] [address] Surgeon Vascular Surgery 03/03/24
--- OUTSIDE RECORDS SUMMARY | 2024-10-08 10:27 | XMS_ITS | Clinical Summary ---
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 Continue offloading therapy and wound care management per Wound Service. Assessment & Plan (06/12/2023 9:47 AM MILL LABORER): Impression: Patient has an ulceration noted to [...] hydralazine. Assessment & Plan (04/28/2024 12:43 PM MILL LABORER): Impression: Chronic and stable. Plan: Continue amlodipine, carvedilol, hydralazine Assessment & Plan (03/03/2024 11:46 AM CDT): Hypertension chronic controlled. Continue current medical management. Assessment & Plan (06/12/2023 9:46 AM MILL LABORER): Impression: Chronic and stable. Plan: Continue amlodipine, carvedilol, hydralazine Assessment & Plan (07/03/2021 11:21 AM MILL LABORER): Continue medications as currently precribed Assessment & [...] and establishing or updating healthcare power of civil rights attorney document and providing our office with a copy. Stage 3a chronic kidney disease 03/29/2021 Assessment & Plan (07/03/2021 11:15 AM MILL LABORER): Saw Dr. Perez last week Needs labs [...] glipizide Assessment & Plan (04/28/2024 12:43 PM MILL LABORER): Impression: Chronic with good glucose control. Plan: Continue glipizide Assessment & Plan (03/29/2021 2:02 PM CDT): Stop metformin Start glipizide instead Referral to renal for further management of his renal function Assessment & Plan (02/20/2021 10:02 AM CDT): hgba1c is 9.3 Checking official one with CMP and other labs Will need to start medications once we get his lab work back Encounters Date Type Department Care Team Description 10/01/2024 Telephone [facility] Cardiology [address] [place] [address] Sultan Ej Bhandari MD 09/27/2024 Telephone [facility] Cardiology [address] [place] [address] Richmond Soto MD 09/24/2024 8:21 AM CDT - 09/24/2024 11:59 PM CDT Hospital Encounter [facility] at [address] [place] [address] Chronic kidney disease, stage 4 (severe) (HCC) (Primary Dx); Primary hypertension; Type 2 diabetes mellitus with diabetic peripheral angiopathy without gangrene, without long-term current use of insulin (HCC) Discharge Disposition: Discharge to home or self care 09/24/2024 8:21 AM CDT - 09/24/2024 11:59 PM CDT Hospital Encounter [facility] Medical Office Building [address] [place] [address] [address] [place] [address] Pre-operative exam; Chronic kidney disease, stage 4 (severe) (HCC) Discharge Disposition: Discharge to home or self care 09/24/2024 Telephone [facility] at [address] [place] [address] Rosy Godinez NP Referral/Request for Cardiac Clearance (LUE AVF vs AVG Creation to be scheduled once clearance obtained. ) 09/06/2024 Telephone [facility] [place] [address] Saadia De Leon from Last 3 Months Immunizations Immunization Administration Dates Next Due Influenza, [...] on file Legal Sex Male 1:29 AM MILL LABORER Gender Identity Not on file Sexual Orientation [...] 09/24/2024 8:34 AM CDT Plan of Treatment Health Maintenance Due Date Last Done Comments Colon Cancer Screening-Colonoscopy 1950 Dilated Eye Exam 1950 Hepatitis B Screening 1967 Pneumococcal vaccine 65+ (1 of 2 - PCV) 01/17/1968 Zoster Vaccine (1 of 2) 1999 Fall Risk Assessment 03/29/2022 03/29/2021, 02/21/20 Foot Exam 03/29/2022 03/29/2021 Well Visit 65+ 03/29/2022 03/29/2021 Albumin Creatinine Ratio, Urine 06/27/2022 Hemoglobin A1C 08/05/2022 02/05/2022, 05/0 07/2021, 07/03/2021, Additional history exists Depression Screening 02/05/2023 02/05/2022, 10/02/2021, 07/03/2021, Additional history exists Lipid Panel 05/07/2023 05/07/2022, 02/20/2021 Covid-19 Vaccine ( - 2023-2 5 season) 2024 09/26/2021, 04/03/2021, 08/14/2020, Additional history exists Influenza Vaccine (Season Ended) 2025 05/07/20, 03/29/2021 eGFR 03/03/2025 03/03/2024, 090 10/2021, 12/24/2021, Additional history exists DTaP/Tdap/Td Vaccine (2 - Td or Tdap) 10/14/2032 10/14/2022 Hepatitis C Screening Completed 02/20/2021 Abdominal Aortic Aneurysm (A AA) Screen Completed 12/24/2021 Medical Devices Implanted Type Area Chair Finisher Device Identifier Shelf Expiration Date Model / Serial / Lot Ng Vascular System Closure Repair Femoral Artery Suture Mediated Perclose Prostyle [id number] - [id number] Implanted:Qty: 1 on 03/03/2024 by Mando Velazco MD at [facility] [employer] 01/30/2025 [id number] / / [id number] Procedures Procedure Name Priority Date/Time Associated Diagnosis Comments US VEIN MAPPING DUPLEX UPPER EXTREMITY BILATERAL Schedule Routine, Read Routine (OP Routine) 09/24/2024 9:57 AM CDT Pre-operative exam Chronic kidney disease, stage 4 (severe) (HCC) EGFR STAT 03/03/2024 10:30 AM CDT 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 HEMOGLOBIN A1C Routine 02/05/2022 11:50 AM CDT Diabetic ulcer of left midfoot associated with type 2 diabetes mellitus, limited to breakdown of skin (HCC) US ABDOMINAL AORTIC ANEURYSM SCREENING Schedule Routine, Read Routine (OP Routine) 12/24/2021 8:52 AM CDT Former smoker ALBUMIN CREATININE RATIO, URINE Routine 06/27/2021 2:34 PM MILL LABORER Diabetic nephropathy (HCC) HEPATITIS C ANTIBODY Routine [...] Gender: M Study Date: 09/24/2024 09:14:31 AM Personnel Counselor: Bea Alexander Provider: NOEL VELAZCO Quality: Adequate [...] Gender: M Study Date: 09/24/2024 09:14:31 AM Personnel Counselor: Bea Alexander Provider: NOEL VELAZCO Quality: Adequate [...] Noel Velazco MD 09/24/2024 10:48:22 AM CDT Noel Velazco MD IM US PROCEDURES Final Result * (ABNORMAL) eGFR [...] Velazco MD LAB BLOOD ORDERABLES Final Result [facility] [address] Department [place] [address] * (ABNORMAL) Hemoglobin A1c (02/05/2022 11:50 AM CDT) Hgb A1C 8.3(H) 4.0 - 5.6 % ANNEL Comment:Testing performed by : [address] [address] Estimated Average Glucose 192 mg/dL ANNEL Comment: The ADA recommends reporting an estimated Average Glucose (eAG) with all Hemoglobin A1c results using the equation derived from a study of 507 normal and diabetic adults. Minority populations were underrepresented and children were not included. (Diabetes Care 31:9877-7878, 2008). The eAG is not equivalent to a fasting glucose. Testing performed by: [address] [address] Blood 02/05/2022 11:5 0 AM CDT 02/05/2022 1:50 PM CDT Yosvany Pierson Jr., MD LAB BLOOD ORDERABLES Final Result [facility] [address] Department [place] [address] * US Abdominal Aortic Aneurysm Screening (12/24/2021 [...] Jamin Longo M.D. CH: CORIE Report ID: [id number] Reading Location: [id number] Procedure Note Jamin Longo Jr., MD - [...] by Jamin Longo M.D. CH: Report ID: [id number] Reading Location: [id number] us Yosvany Pierson Jr., MD IMG US PROCEDURES Fin al Result * (ABNORMAL) Albumin Creatinine Ratio, Urine (06/27/2021 2:34 PM MILL LABORER) Albumin Ur 1,670.6 mg/L ANNEL HDZ Comment: Interpretive Data No reference range established. Current interpretive data was last revised 2018. Testing performed by: [facility], [address] [place] [address]., [address] Creatinine Ur 34.3 mg/dL ANNEL Comment: Interpretive Data No reference range established. Current interpretive data was last revised 2018. Testing performed by: [facility], [address] [place] [address]., [address] Albumin Creatinine Ratio, Ur 4,871(H) 1 - 29 mg/g ANNEL Comment:Testing performed by : [facility], [address] [place] [address]., [address] Urine 06/27/2021 2:34 PM MILL LABORER 06/27/2021 4:51 PM MILL LABORER Allen Perez MD LAB URINE ORDERABLES Final Re sult Performing Organization Address [facility] Co de Phone Number [facility] [address] [place] [address] * Hepatitis C antibody (02/20/2021 11:08 AM [...] NERAL ORDERABLES Final Result Performing Organization Address City/[facility] Co de Phone Number [facility] [address] [address] * (ABNORMAL) Lipid panel (02/20/2021 11:08 AM [...] last revised on 2018. Testing performed by: [address] [address] Triglycerides 140 <=149 mg/dL ANNEL Comment: Interpretive [...] last revised on 2018. Testing performed by: [address] [address] HDL 44 >=40 mg/dL ANNEL Comment: Interpretive [...] last revised on 2018. Testing performed by: [address] [address] LDL, calculated 172(H) <=129 mg/dL ANNEL Comment: [...] last revised on 2018. Testing performed by: [address] [address] Non-HDL Cholesterol 200 mg/dL ANNEL HDZ Comment: [...] last revised on 2018. Testing performed by: [address] [address] Chol/HDL ratio 6 ANNEL Comment:Testing performed by : [address] [address] Blood 02/20/2021 11:0 8 AM CDT 02/20/2021 1:40 PM CDT us Yosvany Pierson Jr., MD LAB BLOOD ORDERABLES Final Result [facility] [address] Department [place] [address] from Last 3 Months or Most Recently Relevant to Health Maintenance Insurance [facility] MEDICARE ADVANTAGE Care Teams Real Estate Firm Manager Relationship Specialty Start Date End Date Jay Queen MD PCP - General Family Practice 02/26/24 Mando Velazco MD [address] [facility] [address] [address] Surgeon Vascular Surgery 03/03/24
--- OUTSIDE RECORDS SUMMARY | 2024-10-08 10:27 | XMS_ITS ---
Author Organization [facility] Address [address] [place], [place] [address] Care Team Providers Care Diploma Medical Assistant Name Role Phone BRIDGETTE CRUZ Unavailable [phone] Shalom Adame Unavailable Unavailable REASON FOR VISIT *Callus Care Encounters Encounter Location Date Provider Diagnosis [facility] [address] [place], [place] [address] 10/04/2024 BRIDGETTE CRUZ Plan Of Treatment No Information Progress Notes * ROBINDAVID McleanDOB:1950 ( 74 yo M)Acc No.[id number]:10/04/2024 Patient: DAVID DIOR Provider: Zach Cruz DPM :1950 A ge:74 Y S ex:Male Date:10/04/2024 Address:[address] [place], [place] [id number] Subjective: * Chief Complaints: * 1 . *Callus Care. * Medical History: Objective: * Vitals: Assessment: Plan: * Treatment: * Billing Information: * Visit Code: * Procedure Codes: * Electronic signature of BRIDGETTE CRUZ DPM on 10/08/2024 at 10:27 AM CDT Sign off status: Pending * Provider: Zach Cruz DPM Date: 10/04/2024 Generated for Naomi jose/Natalia/Keanu on: 0 10/08/2024 10:27 AM CDT
--- OUTSIDE RECORDS SUMMARY | 2024-10-08 10:27 | XMS_ITS ---
Author Organization [facility] Address [address] [place], [place] [address] Care Team Providers Care Office Spec Name Role Phone BRIDGETTE CRUZ Unavailable [phone] Shalom Adame Unavailable Unavailable REASON FOR VISIT transportation Encounters Encounter Location Date Provider Diagnosis [facility] [address] [place], [place] [address] 12/02/2023 BRIDGETTE CRUZ Plan Of Treatment No Information Progress Notes * DAVID KELLYDOB:1950 ( 74 yo M)Acc No.[id number]:12/02/2023 Patient: RAJESH DIORNY Provider: Zach Cruz DPM :1950 A ge:73 Y S ex:Male Date:12/02/2023 Address:[address] [place], [place] [address] Subjective: * Chief Complaints: * 1 . Transportation. * Medical History: Objective: * Vitals: Assessment: Plan: * Treatment: * Billing Information: * Visit Code: * Procedure Codes: * Electronic signature of BRIDGETTE CRUZ DPM on 10/08/2024 at 10:27 AM CDT Sign off status: Pending * Provider: Zach Cruz DPM Date: 12/02/2023 Generated for Naomi jose/Natalia/Keanu on: 10/08/2024 10:27 AM CDT
--- OUTSIDE RECORDS SUMMARY | 2024-10-08 10:27 | XMS_ITS | Encounter Summary ---
Author Organization [facility] Address [facility] [place] [address] Care Team Providers Care Hydroelectric Plant Maintainer Name Role Phone Brittney Pate MD Primary Care Provider [phone] Charla Jones MD Unavailable [phone] Shalom Adame DO Primary Care Provider [phone] Shalom Adame DO Primary Care Provider [phone] Encounter Details Date Type Department Care Team (Late st Contact Info) Description 08/05/2022 Prep for Procedure [facility], [facility] [address] [place], [place] [id number] Buzz Sesay MD [facility] [address] [place], [place] [id number] Social History Tobacco Use Types Packs/Day Years Used Date Smoking Tobacco: Never Smokeless Tobacco: Never Alcohol Use Standard Drinks/Week Comments Yes 0 (1 standard drink = 0.6 oz pur e alcohol) PHQ-2 Answer Date Recorded Patient Health Questionnaire-2 Score 0 07/26/2022 Sex and Gender Information Value Date Recorded Sex Assigned at Not on file Legal Sex Male 10:[address] Gender Identity Not on file Sexual Orientation Not on file COVID-19 Exposure Response Date Recorded In the last 10 days, have yo u been in contact with someone who was confirmed or suspected to have Coronavirus/COVID-19? No / Unsure 07/31/2022 1:[address] documented as of this encounter Plan of Treatment Not on file documented as of this encounter Visit Diagnoses Not on filedocumented in this encounter Additional Health Concerns Assessment Noted Time PHQ-9 Depression Total Score: 0 05/16/20 1:[address] documented as of this encounter Care Teams Hydroelectric Plant Maintainer Relationship Specialty Start Date End Date Brittney Pate MD [address] [place] [address] PCP - General FAMILY PRACTICE 04/15/22 09/15/22 Shalom Adame DO [address] [place] [address] PCP - General FAMILY PRACTICE 09/25/22 10/23/22 Shalom Adame DO [address] [place] [address] PCP - General FAMILY PRACTICE 10/24/22 06/21/24 Charla Jones MD [address] [facility], [address] [address] Consulting Physician NEPHROLOGY 05/13/22 documented as of this encounter
--- OUTSIDE RECORDS SUMMARY | 2024-10-08 10:27 | XMS_ITS ---
Author Organization [facility] Address [address] [place], [place] [address] Care Team Providers Care Disposal Worker Name Role Phone BRIDGETTE CRUZ Unavailable [phone] Shalom Adame Unavailable Unavailable REASON FOR VISIT toe pain, callus care Encounters Encounter Location Date Provider Diagnosis [facility] [address] [place], [place] [address] 07/26/2024 BRIDGETTE CRUZ Non-pressure chronic ulcer of other part of left foot limited to breakdown of skin L97.521 ; Ingrowing nail L60.0 ; Atherosclerosis of holy cross arteries of extremities with intermittent claudication, bilateral legs I70.213 and Left foot pain M79.672 Assessments Encounter Date Diagnosis (ICD Code) Assessment Notes Treatment Notes Treatment Clinical Notes Section Notes 07/26/2024 Non-pressure chronic ulcer of other part of left foot limited to breakdown of skin (ICD-10 - L97.521) 07/26/2024 Ingrowing nail (ICD-10 - L60.0) 07/26/2024 Atherosclerosis of holy cross arteries of extremities with intermittent claudication, bilateral [...] Appt Details Follow Up: 2 Weeks, Reason: Progress Notes * DAVID KELLYDOB:1950 ( 74 yo M)Acc No.[id number]:07/26/2024 Patient: DAVID DIOR Provider: Zach Cruz DPM :1950 A ge:74 Y S ex:Male Date:07/26/2024 Address:[address] [place] [address] Subjective: * Chief Complaints: * T oe [...] - L60.0 3 . A therosclerosis of holy cross arteries of extremities with intermittent claudication, bilateral legs - I70.213 & #160; 4 . L eft foot pain - M79.672 Plan: * Treatment: * Procedure Codes: * Follow Up: 2 Weeks * Billing Information: * Visit Code: 40147 Office Visit, Est Pt., Level 3. * Procedure Codes: * OR CLERK Sign off status: Completed true * Provider: Zach Cruz DPM Date: 0 07/26/2024 Generated for Naomi jose/Natalia/Carlozitting on: 0 10/08/2024 10:27 AM CDT History and Physical Notes * [...]
--- OUTSIDE RECORDS SUMMARY | 2024-10-08 10:28 | XMS_ITS | Patient Health Record ---
Author Organization [facility] Address [address] [place], [place] [address] Care Team Providers Care Cattle Inspector Name Role Phone BRIDGETTE MARTINEZ Unavailable [phone] Shalom Adame Unavailable Unavailable Allergies No Known Allergies Reason For Referral No Information Immunizations Vaccine Route Administration Date Status Comme nts Influenza, high dose seasonal Unknown 02/28/2023 Admini stered Social History Tobacco Use: Social History Observation Description Date Details (start date - stop date) Never Smoker NA - NA Tobacco Control (Standard) Question Answer Notes Tobacco use: Nonsmoker Encounters Encounter Location Date Provider Diagnosis [facility] [address] [place], [place] [address] 11/04/2023 BRIDGETTE MARTINEZ Non-pressure chronic ulcer of other part of left foot limited to breakdown of skin L97.521 ; Ingrowing nail L60.0 ; Atherosclerosis of hamilton arteries of extremities with intermittent claudication, bilateral legs I70.213 and Left foot pain M79.672 [facility] [place] [address] [place], [place] [phone] 07/26/2024 BRIDGETTE MARTINEZ Non-pressure chronic ulcer of other part of left foot limited to breakdown of skin L97.521 ; Ingrowing nail L60.0 ; Atherosclerosis of hamilton arteries of extremities with intermittent claudication, bilateral [...] L97.521) 07/26/2024 Ingrowing nail (ICD-10 - L60.0) 11/04/2023 Ingrowing nail (ICD-10 - L60.0) 11/04/2023 Atherosclerosis of hamilton arteries of extremities with intermittent claudication, bilateral legs (ICD-10 - I70.213) 07/26/2024 Atherosclerosis of hamilton arteries of extremities with intermittent claudication, bilateral [...] utilizing a #15 blade Plan Of Treatment No Information Insurance Providers Payer Name Payer Address Payer Phone Subscriber Number Group Number Insured Name Patient Relationship to Insured Coverage Start Date Coverage End Date [facility] [address] [address] [place] [address] [id number] DAVID KELLY Self - patient is the insured Medical (General) History Medical History History ICD Code ACID REFLUX HEPATITIS LEG,FEET CRAMPS OPEN SORES DIABETIC TYPE 2
[2024-10-08 11:01] LABS: Hemoglobin 10.2 g/dL (14.0-18.0); Mean Corpuscular HGB Conc 30.9 g/dl (32-36); Mean Corpuscular Hemoglobin 27.6 pg (26-34); Mean Corpuscular Volume 89.4 fl (80-100); Mean Platelet Volume 10.8 fl (7.4-10.4); Platelet Count Result 183 k/mm3 (150-375); Red Blood Count 3.69 M/mm3 (4.6-6.20); Red Cell Distribution Width 14.6 % (11.5-14.5); White Blood Count 6.4 K/mm3 (4.5-10.0)
[2024-10-08 11:09] LABS: Albumin Level 4.4 g/dL (3.5-5.1); Anion Gap 11 mmol/L (4-12); Blood Urea Nitrogen 69 mg/dL (9-20); Calcium 10.3 mg/dL (8.4-10.2); Carbon Dioxide 30 mmol/L (22-30); Chloride 101 mmol/L (98-107); Estimated Glomerular Filt Rate 11; Glucose 87 mg/dL (65-110); Phosphorus 6.5 mg/dL (2.5-4.5); Potassium 4.5 mmol/L (3.4-5.0); Sodium 142 mmol/L (137-145)
[2024-10-08 11:13] LABS: Hemoglobin A1C 6.3 % (<5.7)
[2024-10-08 11:23] LABS: Parathyroid Intact 30.4 pg/mL (14.5-75.2)
[2024-10-08 11:34] LABS: Creatinine Urine 35.9 mg/dL
[2024-10-08 11:38] LABS: MALB Creatinine Ratio 466.9 mg/g (0-30); Microalbumin Urine Random 167.6 mg/L (0-16.7)
[2024-10-08 12:01] LABS: Total Protein Urine Random 51 mg/dL; Ur Ttl Prot Creatinine Ratio 1.38 mg/mg (0-0.20)
[2024-10-08 12:29] LABS: Cholesterol 159 mg/dL (0-200); HDL Direct 39 mg/dL; Triglycerides 104 mg/dL (<150)
[2024-10-08 12:40] LABS: LDL Cholesterol Direct 84 mg/dL
[2024-10-08 13:08] LABS: Prostate Specific Antigen 1.8 ng/mL (< OR = 4.0)
== END 2024-10-08 10:22 | disposition home or self-care (01) ==
LOC: ANHLAB 10:22
PROVIDERS: PCP Family Medicine; Referring Provider Family Medicine; Visit Provider Internal Medicine Nephrology
DX: N18.5 Chronic kidney disease, stage 5 (principal); E11.9 Type 2 diabetes mellitus without complications; Z12.5 Encounter for screening for malignant neoplasm of prostate
CPT/HCPCS: 36415; 80061; 80069; 82043; 82570; 83036; 83970; 84153; 84156; 85027; G0103